=== PATIENT | female | born 1955 | race Caucasian/White ===

== ENCOUNTER 2019-01-23 15:41 | Inpatient (IN) | payer MEDICARE, OTHER ==
[~2019-01-23] VITALS: Ht 172.7 cm; Wt 76.7 kg
--- OUTSIDE RECORDS SUMMARY | 2019-01-23 15:44 | XMS REPORT | Summary of Care ---
Author Author [facility] - Health Organization [facility] - Health Address Unknown Phone Unavailable Care Team Providers Care Rnfa Name Role Phone Roderick Manning Delfina PCP Encounter Details Care Team Description Date Type Department Doctor Unassigned, [place] [address] [place] [address] 10/23/2018 Orders Only [facility] [address] [place] [address] Allergies Comments Active Allergy Reactions Severity Noted Date Swelling of throat Codeine Anaphylaxis, 10/22/2018 Itching documented as of this encounter (statuses as of 10/23/2018) Medications End Date Status Medication Sig Dispensed Refills Start Date Active amitriptyline 10 mg Take 10 mg by 0 tablet mouth. 8 Active citalopram 20 mg tablet Take 20 mg by 0 mouth daily. 9 Active clonazePAM 1 mg tablet Take 1 mg by 1 mouth 2 (two) 9 times daily. Active traZODone 100 mg tablet Take 1 tablet 1 by mouth at 9 bedtime. documented as of this encounter (statuses as of 10/23/2018) Active Problems Not on filedocumented as of this encounter (statuses as of 10/23/2018) Social History Date Tobacco Use Types Packs/Day Years Used Current Every Day Smoker Cigarettes 1 Smokeless Tobacco: Never Used Drinks/Week oz/Week Comments Alcohol Use Not Currently Sex Assigned at Date Recorded Not on file Industry Job Start Date Occupation Not on file Not on file Not on file Travel End Travel History Travel Start No recent travel history available. documented as of this encounter Last Filed Vital Signs Not on filedocumented in this encounter Plan of Treatment Care Team Description Date Type Specialty [address], [place] [address] [place] [address] [phone] 11/19/2018 Office Visit Obstetrics & Gynecology Liu Combs MD [address] [place] [address] [phone] 11/26/2018 Office Visit Obstetrics & Gynecology Health Maintenance Due Date Last Done Comments HEPATITIS C (HCV) SCREEN 1955 PNEUMOCOCCAL 0-64 YEARS 10/12/1961 COMBINED SERIES (1 of 1 - PPSV23) DTaP,Tdap,and Td Vaccines 10/12/1974 (1 - Tdap) PAP SMEAR 10/12/1976 MAMMOGRAM 1995 COLONOSCOPY 10/12/2005 Zoster Recombinant 10/12/2005 Vaccine (SHINGRIX) (1 of 2) LUNG CANCER SCREEN: 10/12/2010 Recommended for age 55-80 with 30 + pack year history INFLUENZA VACCINE 11/11/2018 11/23/2017 documented as of this encounter Procedures Comments Procedure Name Priority Date/Time Associated Diagnosis PATIENT QUESTIONNAIRE Routine 10/23/2018 12:01 AM CDT documented in this encounter Results Not on filedocumented in this encounter Insurance Type Payer Benefit Subscriber ID Effective Phone Address Plan / Dates Group Medicare MEDICARE MEDICARE xxxxxxxxxxx 2016-P [phone] resent [id number] [place] [id number] HMO/PPO/POS CIGNA CIGNA [id number] 2018- GENERIC Present documented as of this encounter
--- OUTSIDE RECORDS SUMMARY | 2019-01-23 15:44 | XMS REPORT | Summary of Care ---
Author Author [facility] - Health Organization [facility] - Health Address Unknown Phone Unavailable Care Team Providers Care Manager Actuarial Name Role Phone Delfina Fang PCP Reason for Referral * MRI/CAT Scan (Routine) Referred By Contact Referred To Contact Status Reason Specialty Diagnoses / Procedures Liu Combs MD [address] [place] [address] New Request Diagnostic Diagnoses Radiology Pain pelvic P rocedures CT ABDOMEN PELVIS W WO CONTRAST * (Routine) Referred By Contact Referred To Contact Status Reason Specialty Diagnoses / Procedures iLu Combs MD [address] [place] [address] New Request Diagnoses Hematuria, unspecified type P rocedures BLADDER SCAN PVR Reason for Visit * Reason Comments New Evaluation Prolapse Encounter Details Care Team Description Date Type Department Liu Combs MD [address] [place] [address] Hematuria, unspecified type (Primary Dx); Overactive bladder; Pain pelvic 10/22/2018 Office Visit [facility] [address] Allergies Comments Active Allergy Reactions Severity Noted Date Swelling of throat Codeine Anaphylaxis, 10/22/2018 Itching documented as of this encounter (statuses as of 10/22/2018) Medications Not on filedocumented as of this encounter (statuses as of 10/22/2018) Active Problems Not on filedocumented as of this encounter (statuses as of 10/22/2018) Social History Date Tobacco Use Types Packs/Day [...] of this encounter Last Filed Vital Signs Reading Time Taken Comments Vital Sign 149/87 10/22/2018 2:08 PM CDT Blood Pressure 81 10/22/2018 2:08 PM CDT Pulse - - Temperature - - Respiratory Rate 98% 10/22/2018 2:08 PM CDT Oxygen Saturation - - Inhaled Oxygen Concentration 77.3 kg (170 lb 6.4 oz) 10/22/2018 2:08 PM CDT Weight 172.7 cm (5' 8") 10/22/2018 2:08 PM CDT Height 25.91 10/22/2018 2:08 PM CDT Body Mass Index documented in this encounter Progress Notes * Lila Vidales MA - 10/22/2018 2:30 PM CDT Patient unable to give urine sample at beginning of visit, claiming she had just voided. PVR in room: 73 ml * Lila Vidales MA - 10/22/2018 2:30 PM CDT POCT U SP GRAV (mg/dl) Date Value 10/22/2018 1.010 POCT PH U (mg/dl) Date Value 10/22/2018 7 POCT U LEUK EST (no units) Date Value 10/22/2018 Negative POCT U NIT (no units) Date Value 10/22/2018 Negative POCT U PROT (no units) Date Value 10/22/2018 Negative POCT U GLU (no units) Date Value 10/22/2018 Normal POCT U KETONE (no units) Date Value 10/22/2018 Negative POCT U UROBILI (mg/dl) Date Value 10/22/2018 Normal POCT U BILI (no units) Date Value 10/22/2018 Negative POCT U BLD (no units) Date Value 10/22/2018 250 Non-hemo (A) POCT U COLOR (no units) Date Value 10/22/2018 Yellow POCT U APPEAR (no units) Date Value 10/22/2018 Clear * Liu Combs MD - 10/22/2018 2:30 PM CDT 10/22/2018 Visit Type: Clinic Note / History and Physical Primary M.D.: Delfina Jacobs is a 63 year old female, , presenting to clinic for evaluatio n of overactive bladder symptoms and pelvic pain that she has had for the last y ear. She has frequent small volume voids every 30 mins to 1 hour during the day and overnight. She denies stress incontinence symptoms aside from an isolated ep isode that occurred with laughing while she was present in clinic today. She cla ims that this was very unusual for her and has never happened previously. She describes her pelvic pain as an intermittent soreness that occurs when she h as been sitting for long periods or when she is supine. She also has occasional sharp twinges associated with movement. She denies prolapse or bulge sensation. Her last colonoscopy was 3 years ago and prompted removal of several polyps. She has a follow up appointment with her rn transplant in a month or two. She reports that she recently went to an [facility] near her home in [place] (unab le to remember doctor or clinic name) for a pap smear and ended up discussing he r urinary symptoms. The provider had her complete urodynamic studies and was lynnette nning surgery, however, she decided to seek care elsewhere. She is unsure what t he results of the UDS were or what the planned surgery was. She believes he star shayy her on a medication for overactive bladder, but is unsure of the medication name, dosage, how long she took it, and why she discontinued it. She denies fecal incontinence and difficulty with bowel movements. MEDICATIONS Trial of one medication for OAB previously - see HPI. HISTORY Allergies Allergen Reactions Codeine Anaphylaxis and Itching Swelling of throat Social History Tobacco Use Smoking status: Current Every Day Smoker Smokeless tobacco: Never Used Substance Use Topics Alcohol use: Not on file Drug use: Not on file Family History Problem Relation Age of Onset Lung Cancer Father Past Medical History: Diagnosis Date COPD (chronic obstructive pulmonary disease) Past Surgical History: Procedure Laterality Date ANTERIOR CRUCIATE LIGAMENT RECONSTRUCTION 2003 SECTION VALVE REPLACEMENT 2016 Review of Systems Constitutional: Positive for fatigue. Negative for chills and fever. Respiratory: Positive for cough. Negative for chest tightness and shortness of b reath. Cardiovascular: Negative for chest pain and palpitations. Gastrointestinal: Positive for abdominal pain. Negative for constipation, diarrh ea, nausea, rectal pain and vomiting. Genitourinary: Positive for bladder incontinence, urgency, frequency, pelvic gavin n and nocturia. Negative for dysuria, hematuria, decreased urine volume, difficu lty urinating and vaginal pain. Musculoskeletal: Negative for arthralgias, back pain and myalgias. Neurological: Positive for weakness and numbness. Negative for dizziness, seizur es and light-headedness. Physical Exam Vitals reviewed. Constitutional: She appears well-developed and well-nourished. Cardiovascular: Regular rate and rhythm. Pulmonary/Chest: Normal inspiratory effort. Abdominal: Abdomen is soft. Neuro/Psychiatric: She has a normal mood and affect. Skin: Skin normal. Genitourinary Comments: No evidence of pelvic organ prolapse. External genitalia: Normal external genitalia appropriate for age. Urethral meatus: Normal urethral meatus Urethra: Normal urethra. Vagina:Normal vagina. Cervix: Normal cervix. POP-Q EXAM Not Done ASSESSMENT/PLAN Hematuria, unspecified type (primary encounter diagnosis) Comment: POCT UA positive for blood. Patient denies gross hematuria. She has a s ignificant smoking history ("1 ppd for years and years"). Plan: CYTO URINE, URINE CULTURE, URINE CULTURE, POCT URINALYSIS W SPECIFIC GRAVITY, BLADDER SCAN PVR Overactive bladder Comment: Due to unclear history and lack of available records, we will repeat UD S and attempt to get records before further treatment planning. Plan: RTC for UDS with Ms. Lane. Pelvic Pain Comment: UA inconsistent with UTI but positive for blood. We will check urine cy tology. We discussed that pelvic organ prolapse and overactive bladder do not ca use pelvic pain, and that the pain might not be of gynecologic origin. She was e ncouraged to keep her appointment with her rn transplant. Ct Abd/ pelvis or dered. We will follow up with this concern at her next visit. Plan: see above Total time of visit: [address] Combs spent greater than 50% of the visit counseling with the patient regardi ng urinary incontinence and follow up. Corie Daily [facility] MS4 Urogynecology Acting Obstetrics Tech Total time of visit: 60 minutes I spent greater than 50% of the visit counseling with the patient regarding uri nary incontinence and follow up. Liu Combs MD 10/22/2018 5:23 PM documented in this encounter Plan of Treatment Care Team Description Date Type Specialty Katherine Lane, [facility] [address] [place] [address] [phone] 11/19/2018 Office Visit Obstetrics & Gynecology Liu Combs MD [address] [place] [address] 11/26/2018 Office Visit Obstetrics & Gynecology Date/Time Name Type Priority Associated Diagnoses 10/22/2018 3:13 PM CDT CYTO URINE LAB Routine Hematuria, unspecified type 10/22/2018 3:14 PM CDT URINE CULTURE LAB Routine Hematuria, unspecified type Order Schedule Name Type Priority Associated Diagnoses 1 Occurrences starting 10/22/2018 until 10/22/2019 URINE CULTURE LAB Routine Hematuria, unspecified type Ordered: 10/22/2018 BLADDER SCAN PVR PROCEDURES Routine Hematuria, unspecified type Expected: 10/22/2018, Expires: 10/23/2019 CT ABDOMEN PELVIS W WO IMAGING Routine Pain pelvic CONTRAST Ordered: 10/22/2018 CREATININE LAB Routine Pain pelvic Health Maintenance Due Date Last Done Comments HEPATITIS C (HCV) SCREEN 1955 DTaP,Tdap,and Td Vaccines 10/12/1974 (1 - Tdap) PAP SMEAR 10/12/1976 MAMMOGRAM 1995 COLONOSCOPY 10/12/2005 Zoster Recombinant 10/12/2005 Vaccine (SHINGRIX) (1 of 2) LUNG CANCER SCREEN: 10/12/2010 Recommended for age 55-80 with 30 + pack year history INFLUENZA VACCINE 11/11/2018 PNEUMOCOCCAL 0-64 YEARS Aged Out No longer eligible based COMBINED SERIES on patient's age to complete this topic documented as of this encounter Procedures Comments Procedure Name Priority Date/Time Associated Diagnosis POCT URINALYSIS Routine 10/22/2018 Hematuria, unspecified 3:12 PM CDT type documented in this encounter Results * POCT URINALYSIS W SPECIFIC GRAVITY (10/22/2018 3:12 PM CDT) POCT U SP GRAV 1.010 1.005 - 1.025 mg/dl POCT PH U 7 5 - 8 mg/dl POCT U LEUK EST Negative Negative - Negative POCT U NIT Negative Negative - Negative POCT U PROT Negative Negative - Negative POCT U GLU Normal Negative - Negative POCT U KETONE Negative Negative - Negative POCT U UROBILI Normal 0.2 - 1 mg/dl POCT U BILI Negative Negative - Negative POCT U BLD 250 Non-hemo (A) Negative - Negative POCT U COLOR Yellow POCT U APPEAR Clear Specimen Urine - URINE, CLEAN CATCH Narrative Performed At [facility] documented in this encounter Visit Diagnoses Diagnosis Hematuria, unspecified type - Primary Overactive bladder Hypertonicity of bladder Pain pelvic Unspecified symptom associated with female genital organs documented in this encounter Insurance Type Payer Benefit Subscriber ID Effective Phone Address Plan / Dates Group Medicare MEDICARE MEDICARE xxxxxxxxxxx 2016-P [phone] resent [id number] [place] [id number] HMO/PPO/POS CIGNA CIGNA [id number] 2018- GENERIC Present documented as of this encounter
--- OUTSIDE RECORDS SUMMARY | 2019-01-23 15:44 | XMS REPORT | Summary of Care ---
Author Author [facility] - Health Organization [facility] - Health Address Unknown Phone Unavailable Care Team Providers Care Shearing Machine Feeder Name Role Phone Delfina Fang PCP Reason for Referral * Radiology Services (Routine) Referred By Contact Referred To Contact Status Reason Specialty Diagnoses / Procedures Liu Combs MD [address] [place] [address] New Request Diagnostic Diagnoses Radiology Breast calcification, right P rocedures BI ULTRASOUND BREAST COMPLETE BILATERAL Reason for Visit * Reason Comments Orders Encounter Details Care Team Description Date Type Department Liu Combs MD [address] [place] [address] Orders 11/05/2018 Telephone [facility] [address] [address] Allergies Comments Active Allergy Reactions Severity Noted Date Swelling of throat Codeine Anaphylaxis, 10/22/2018 Itching documented as of this encounter (statuses as of 11/05/2018) Medications End Date Status Medication Sig Dispensed [...] tablet 1 by mouth at 9 bedtime. Active travoprost (TRAVATAN Z) 1 Drop at 0 0.004 % ophthalmic bedtime. solution documented as of this encounter (statuses as of 11/05/2018) Active Problems Not on filedocumented as of this encounter (statuses as of 11/05/2018) Social History Date Tobacco Use Types Packs/Day [...] Treatment Care Team Description Date Type Specialty Domingo Lennykayla Ansari, [facility] [address] [place] [address] 11/19/2018 Office Visit Obstetrics & Gynecology Liu Combs MD [address] [place], [place] [phone] 11/26/2018 Office Visit Obstetrics & Gynecology Marck Oreilly MD [address] [facility] [id number] [place] [id number] Derick Rubin, PT [address] [place] [address] 12/10/2018 Ancillary Visit Physical Therapy Order Schedule Name Type Priority Associated Diagnoses Expected: 11/05/2018, Expires: 01/06/2020 BI ULTRASOUND BREAST IMAGING Routine Breast calcification, COMPLETE BILATERAL right Health Maintenance Due Date Last Done Comments HEPATITIS C (HCV) SCREEN 1955 PNEUMOCOCCAL 0-64 YEARS 10/12/1961 COMBINED SERIES (1 of 1 - PPSV23) DTaP,Tdap,and Td Vaccines 10/12/1974 (1 - Tdap) PAP SMEAR 10/12/1976 MAMMOGRAM 1995 COLONOSCOPY 10/12/2005 Zoster Recombinant 10/12/2005 Vaccine (SHINGRIX) (1 of 2) LUNG CANCER SCREEN: 10/12/2010 Recommended for age 55-80 with 30 + pack year history INFLUENZA VACCINE (#1) 2018 11/23/2017 documented as of this encounter Results Not on filedocumented in this encounter Visit Diagnoses Diagnosis Breast calcification, right - Primary Other (abnormal) findings on radiological examination of breast documented in this encounter Insurance Type Payer Benefit Subscriber ID Effective Phone Address Plan / Dates Group Medicare MEDICARE MEDICARE xxxxxxxxxxx 2016-P [phone] [address] resent [id number] [place] [id number] HMO/PPO/POS [employer] [id number] 2018- GENERIC Present documented as of this encounter
--- OUTSIDE RECORDS SUMMARY | 2019-01-23 15:44 | XMS REPORT | Summary of Care ---
Author Author [facility] - Health Organization [facility] - Health Address Unknown Phone Unavailable Care Team Providers Care Gaming Dealer Name Role Phone Delfina Fang PCP Reason for Referral * Radiology Services (Routine) Referred By Contact Referred To Contact Status Reason Specialty Diagnoses / Procedures Liu Combs MD [address] [place] [address] New Request Diagnostic Diagnoses Radiology Breast calcification, right P rocedures BI DIAGNOSTIC MAMMOGRAM BILATERAL * (Routine) Referred By Contact Referred To Contact Status Reason Specialty Diagnoses / Procedures Liu Combs MD [address] [place] [address] New Request Physical Therapy Diagnoses Back pain, unspecified back location, unspecified back pain laterality, unspecified chronicity P rocedures CONSULT/REFERRAL PHYSICAL THERAPY Reason for Visit * Reason Comments Follow-up follow up to CT scan and pain pills Encounter Details Care Team Description Date Type Department Liu Combs MD [address] [place] [address] Back pain, unspecified back location, unspecified back pain laterality, unspecified chronicity (Primary Dx); Breast calcification, right 11/05/2018 Office Visit [facility] [address] [place] [address] [address] Allergies Comments Active Allergy Reactions [...] Signs Reading Time Taken Comments Vital Sign 152/89 11/05/2018 10:36 AM CDT Blood Pressure 86 11/05/2018 10:36 AM CDT Pulse 35.9 C (96.7 F) 11/05/2018 10:36 AM CDT Temperature 18 11/05/2018 10:36 AM CDT Respiratory Rate 98% 11/05/2018 10:36 AM CDT Oxygen Saturation - - Inhaled Oxygen Concentration 78.3 kg (172 lb 9.6 oz) 11/05/2018 10:36 AM CDT Weight 172.7 cm (5' 8") 11/05/2018 10:36 AM CDT Height 26.24 11/05/2018 10:36 AM CDT Body Mass Index documented in this encounter Progress Notes * Liu Combs MD - 11/05/2018 10:30 AM CDT Urogynecology Clinic Follow Up HPI Eddie Jacobs is a 63 year old female returning for review of CT scan results. CT scan performed due to history of abdominal and pelvic pain. Patient reports back pain as well, worsen with sitting. She has not been evaluated by physical thera py. Patient also has overactive bladder, is scheduled for urodynamics testing. IMPRESSION 1. No acute intra-abdominal or intrapelvic pathology 2. Hepatomegaly and hepatic steatosis 3. Prominent para uterine blood vessels and dilated left gonadal vein can lead to pelvic congestion syndrome. 4. Partially visualized calcified mass in the right breast. Please correlate with mammogram 5. Bilateral spondylolysis of L5 with grade 1 anterolisthesis of L5 6. 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 HISTORY Allergies Allergen Reactions Codeine Anaphylaxis and Itching Swelling of throat Social History Tobacco Use Smoking status: Current Every Day Smoker Packs/day: 1.00 Types: Cigarettes Smokeless tobacco: Never Used Substance Use Topics Alcohol use: Not Currently Drug use: Not Currently Family History Problem Relation Age of Onset Lung Cancer Father Past Medical History: Diagnosis Date COPD (chronic obstructive pulmonary disease) Past Surgical History: Procedure Laterality Date ANTERIOR CRUCIATE LIGAMENT RECONSTRUCTION 2002 SECTION VALVE REPLACEMENT 2015 REVIEW OF SYSTEMS (+)=Positive (-)=Negative I have reviewed ROS from the previous encounter dated and there are no changes. PHYSICAL EXAM (+)=Positive (-)=Negative BP (!) 152/89 | Pulse 86 | Temp 35.9 C (96.7 F) | Resp 18 | Ht 5' 8" (1. 727 m) | Wt 172 lb 9.6 oz (78.3 kg) | SpO2 98% | BMI 26.24 kg/m Constitutional: She appears well-developed and well-nourished. Her body habitus is normal. Pulmonary/Chest: Normal inspiratory effort. Abdominal: Abdomen is soft. No tenderness present. Neuro: She is oriented to person, place, and time. Psychiatric: She has a normal mood and affect. Skin: Skin normal. No lesion and no rash present. Ext: Normal. No pedal edema. ASSESSMENT/PLAN Back pain, unspecified back location, unspecified back pain laterality, unspecif ied chronicity (primary encounter diagnosis) Comment: Discussed that pelvic pain, back pain may be musculoskeletal in origin. CT resul t findings were extensively reviewed with the patient. Advised patient to follow up with PCP and cardiology to notify them of CT findings for future monitoring. 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 Would try physical therapy first prior to starting trial of OCPs. Plan: CONSULT/REFERRAL PHYSICAL THERAPY Breast calcification, right Comment: MMG ordered as advised. Postpone trial of OCPs for pelvic congestion sy ndrome until mammogram. Plan: BI DIAGNOSTIC MAMMOGRAM BILATERAL Follow up for urodynamics testig as scheduled. This visit involved counseling and coordination of care that comprised more than 50% of the visit time. I spent 45 minute(s) total time with the patient. Of t hat time, 10 minute(s) was spent on history and exam, and 20 minute(s) was spent counseling the patient regarding CT scan results and follow up. Liu Combs MD 11/05/2018 12:28 PM * Elsie Crocker MA - 11/05/2018 10:30 AM CDT Eddie Jacobs is a 63 year old female follow up to CT scan and pain pills she is a lert and ambulatory documented in this encounter Plan of Treatment Care Team Description Date Type Specialty Katherine [address], [facility] [address] [place] [address] 11/19/2018 Office Visit Obstetrics & Gynecology Liu Combs MD [address] [place], [place] [phone] 11/26/2018 Office Visit Obstetrics & Gynecology Marck Oreilly MD [address] [facility] [id number] [place] [address] [phone] Derick Rubin, PT [address] [place] [address] 12/10/2018 Ancillary Visit Physical Therapy Order Schedule Name Type Priority Associated Diagnoses Expected: 11/05/2018, Expires: 01/06/2020 BI DIAGNOSTIC MAMMOGRAM IMAGING Routine Breast calcification, BILATERAL right Health Maintenance Due Date Last [...] filedocumented in this encounter Visit Diagnoses Diagnosis Back pain, unspecified back location, unspecified back pain laterality, unspecified chronicity - Primary Breast calcification, right Other (abnormal) findings on radiological examination of breast documented in this encounter Insurance Type Payer Benefit Subscriber ID Effective Phone Address Plan / Dates Group Medicare MEDICARE MEDICARE xxxxxxxxxxx 2016-P [phone] resent [id number] [place] [id number] HMO/PPO/POS [employer]LIN [employer]UCKER [id number] 2018- GENERIC Present documented as of this encounter
--- OUTSIDE RECORDS SUMMARY | 2019-01-23 15:44 | XMS REPORT | Summary of Care ---
Author Author [facility] - Health Organization [facility] - Health Address Unknown Phone Unavailable Care Team Providers Care Energy Projects Lead Name Role Phone Delfina Fang PCP Reason for Visit * Reason Comments Results CT results Encounter Details Care Team Description Date Type Department Liu Combs MD [address] [place] [address] Results (CT results) 10/31/2018 Telephone [facility] [address] [place] [address] [address] [place] [address] Allergies Comments Active Allergy Reactions Severity Noted Date Swelling of throat Codeine Anaphylaxis, 10/22/2018 Itching documented as of this encounter (statuses as of 10/31/2018) Medications End Date Status Medication Sig Dispensed [...] as of this encounter (statuses as of 10/31/2018) Active Problems Not on filedocumented as of this encounter (statuses as of 10/31/2018) Social History Date Tobacco Use Types Packs/Day [...] Team Description Date Type Specialty [address], [facility] [address] [facility] [place] [address] 11/19/2018 Office Visit Obstetrics & Gynecology Liu Combs MD [address] [place] [address] 11/26/2018 Office Visit Obstetrics & Gynecology Health [...] Dates Group Medicare MEDICARE MEDICARE xxxxxxxxxxx 2016-P [phone] resent [id number] [place] [id number] HMO/PPO/POS CAITLIN TUCKER [id number] 2018- GENERIC Present documented as of this encounter
--- OUTSIDE RECORDS SUMMARY | 2019-01-23 15:44 | XMS REPORT | Summary of Care ---
Author Author [facility] - Health Organization [facility] Address Unknown Phone Unavailable Care Team Providers Care Supervisor Logging Name Role Phone Delfina Fang PCP Reason for Visit * MRI/CAT Scan (Routine) Referred By Contact Referred To Contact Status Reason Specialty Diagnoses / Procedures Liu Combs MD [address] [place] [address] Closed Diagnostic Diagnoses Radiology Pain pelvic P rocedures CT ABDOMEN PELVIS W CONTRAST CT ABDOMEN PELVIS W WO CONTRAST Encounter Details Care Team Description Date Type Department Liu Combs MD [address] [place] [address] Arrived 10/26/2018 [facility] Diagnostic Encounter Imaging, [address] [address] Allergies Comments Active Allergy Reactions Severity Noted Date Swelling of throat Codeine Anaphylaxis, 10/22/2018 Itching documented as of this encounter (statuses as of 10/27/2018) Medications End Date Status Medication Sig Dispensed [...] as of this encounter (statuses as of 10/27/2018) Active Problems Not on filedocumented as of this encounter (statuses as of 10/27/2018) Social History Date Tobacco Use Types Packs/Day [...] Team Description Date Type Specialty Katherine [address], [facility] [address] [place] [address] 11/19/2018 Office Visit Obstetrics & Gynecology Liu Combs MD [address] [place] [address] 11/26/2018 Office Visit Obstetrics & Gynecology [...] 2018 11/23/2017 documented as of this encounter Procedures Comments Procedure Name Priority Date/Time Associated Diagnosis CT ABDOMEN PELVIS W Routine 10/26/2018 Pain pelvic CONTRAST 3:28 PM CDT documented in this encounter Results * CT ABDOMEN PELVIS W CONTRAST (10/26/2018 3:28 PM CDT) Specimen Impressions Performed At 1. No acute intra-abdominal or intrapelvic pathology PACS/VR/DOSE 2. Hepatomegaly and hepatic steatosis 3. Prominent para uterine blood vessels and dilated left gonadal vein can lead to pelvic congestion syndrome. 4. Partially visualized calcified mass in the right breast. Please correlate with mammogram 5. Bilateral spondylolysis of L5 with grade 1 anterolisthesis of L5 6. 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 Narrative Performed At * * * * * * * * ORIGINAL REPORT * * * * * * * * PACS/VR/DOSE EXAM: CT SCAN OF THE ABDOMEN AND PELVIS WITH CONTRAST HISTORY:Abd pain, acute, generalized; TECHNIQUE:3.75 mm axial images are obtained from diaphragmatic domes to symphysis pubis following intravenous administration of 100 mL of Omnipaque 350. Sagittal and coronal reformations are carried out. COMPARISON: None FINDINGS: The visualized lung bases are clear. No pleural effusion is seen. Heart size is normal. 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 A partially calcified mass is present in the lower inferior right breast. Liver is enlarged in size and measures 19.6 cm. The density of the liver is decreased compared to the spleen. No definite focal masses are present within the liver. Gallbladder is normal. No calcified gallstones are seen. No biliary tree dilation is appreciated. Pancreas is somewhat atrophic. No ductal dilation is noted. Spleen is normal in size. Multiple calcifications are seen within the spleen. Adrenal glands are normal. No nodularity is seen. Kidneys are normal in size and shape. No renal stone or hydronephrosis is present. Very mild aneurysmal dilation of the infrarenal abdominal aorta is noted with a diameter of 2.4 cm. Atherosclerotic calcifications are seen in the abdominal aorta. No free fluid is seen in the abdomen. No enlarged retroperitoneal lymph nodes are present. No evidence of bowel obstruction is seen. A few scattered diverticula are seen in the sigmoid colon. The uterus and urinary bladder are grossly normal. Multiple prominent parametrial vessels are seen in the left side of the uterus with dilated left gonadal vein. No free fluid is seen in the pelvis. No suspicious bony abnormality is noted. Grade 1 anterolisthesis of L5 is noted in relation to S1 with bilateral spondylolysis of L5. Exaggerated lumbosacral lordosis is seen. Procedure Note [facility], Radiant Results Inft User - 10/26/2018 4:02 PM CDT * * * * * * * * ORIGINAL REPORT * * * * * * * * EXAM: CT SCAN OF THE ABDOMEN AND PELVIS WITH CONTRAST HISTORY: Abd pain, acute, generalized; TECHNIQUE:3.75 mm axial images are obtained from diaphragmatic domes to symphysis pubis following intravenous administration of 100 mL of Omnipaque 350. Sagittal and coronal reformations are carried out. COMPARISON: None FINDINGS: The visualized lung bases are clear. No pleural effusion is seen. Heart size is normal. 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 A partially calcified mass is present in the lower inferior right breast. Liver is enlarged in size and measures 19.6 cm. The density of the liver is decreased compared to the spleen. No definite focal masses are present within the liver. Gallbladder is normal. No calcified gallstones are seen. No biliary tree dilation is appreciated. Pancreas is somewhat atrophic. No ductal dilation is noted. Spleen is normal in size. Multiple calcifications are seen within the spleen. Adrenal glands are normal. No nodularity is seen. Kidneys are normal in size and shape. No renal stone or hydronephrosis is present. Very mild aneurysmal dilation of the infrarenal abdominal aorta is noted with a diameter of 2.4 cm. Atherosclerotic calcifications are seen in the abdominal aorta. No free fluid is seen in the abdomen. No enlarged retroperitoneal lymph nodes are present. No evidence of bowel obstruction is seen. A few scattered diverticula are seen in the sigmoid colon. The uterus and urinary bladder are grossly normal. Multiple prominent parametrial vessels are seen in the left side of the uterus with dilated left gonadal vein. No free fluid is seen in the pelvis. No suspicious bony abnormality is noted. Grade 1 anterolisthesis of L5 is noted in relation to S1 with bilateral spondylolysis of L5. Exaggerated lumbosacral lordosis is seen. IMPRESSION 1. No acute intra-abdominal or intrapelvic [...] aorta with a diameter of 2.4 cm. Performing Organization Address City/State/Zipcode Phone Number PACS/VR/DOSE documented in this encounter Visit Diagnoses Diagnosis Pain pelvic Unspecified symptom associated with female genital organs documented in this encounter Administered Medications Action Date Dose Rate Site Medication Order MAR Action 10/26/2018 3:10 PM CDT 100 mL iohexol (OMNIPAQUE 350 BULK-100 mL) Given injection 100 mL 100 mL, Intravenous, ONCE, 1 dose, Mon10/26/18 at 1530, Routine documented in this encounter Insurance Type Payer Benefit Subscriber ID Effective Phone Address Plan / Dates Group Medicare MEDICARE MEDICARE xxxxxxxxxxx 2016-P [phone] [address] & B resent [id number] [place] [id number] HMO/PPO/POS CAITLIN TUCKER [id number] 2018- GENERIC Present ([place]) [place] [address] documented as of this encounter
--- OUTSIDE RECORDS SUMMARY | 2019-01-23 15:44 | XMS REPORT | Summary of Care ---
Author Author [facility] - Health Organization [facility] - Health Address Unknown Phone Unavailable Care Team Providers Care Patent Clerk Name Role Phone Delfina Fang PCP Reason for Referral * Radiology Services (Routine) Referred By Contact Referred To Contact Status Reason Specialty Diagnoses / Procedures Liu Combs MD [address] [place] [address] New Request Diagnostic Diagnoses Radiology Breast calcification, right P rocedures BI DIAGNOSTIC MAMMOGRAM BILATERAL * (Routine) Referred By Contact Referred To Contact Status Reason Specialty Diagnoses / Procedures Liu Combs MD [address] [place] [address] New Request Physical Therapy Diagnoses Back pain, unspecified back location, unspecified back pain laterality, unspecified chronicity P rocedures CONSULT/REFERRAL PHYSICAL THERAPY Reason for Visit * Reason Comments Follow-up follow up to CT scan and pain pills Encounter Details Care Team Description Date Type Department Liu Combs MD [address] [place] [address] Back pain, unspecified back location, unspecified back pain laterality, unspecified chronicity (Primary Dx); Breast calcification, right 11/05/2018 Office Visit [facility] [address] [place] [address] [address] Allergies Comments Active Allergy Reactions [...] Team Description Date Type Specialty Katherine [address], [facility] [address] [place] [address] 11/19/2018 Office Visit Obstetrics & Gynecology Liu Combs MD [address] [place], [place] [phone] 11/26/2018 Office Visit Obstetrics & Gynecology Marck Oreilly MD [address] [facility] [id number] [place] [address] [phone] eDrick Rubin, PT [address] [place] [address] 12/10/2018 Ancillary Visit Physical Therapy Order Schedule [...] Dates Group Medicare MEDICARE MEDICARE xxxxxxxxxxx 2016-P [phone] [address] resent [id number] [place] [id number] HMO/PPO/POS CAITLIN TUCKER [id number] 2018- GENERIC Present documented as of this encounter
--- OUTSIDE RECORDS SUMMARY | 2019-01-23 15:44 | XMS REPORT ---
Author Author [facility] Address Unknown Phone Unavailable Care Team Providers Care Wine Bottle Inspector Name Role Phone Unavailable Unavailable Payers Payer Name Policy Type Policy Number Effective Date Expiration Date Problems This patient has no known problems. Allergies, Adverse Reactions, Alerts Allergy Name Allergy Type Status Severity Reaction(s) Onset Date Inactive Date Treating Clinician Comments stephanie Vazquez ID 2015-11-12 00:00:00 Medications This patient has no known medications. Results Test Description Test Time Test Comments Text Results Atomic Results Result Comments - US ABDOMEN COMPLETE 2018-10-18 13:25:00 Name: PINA [facility] [place] : 1955 Age/S: 62 / F [address] [place] [address] Unit #: [id number] Loc: [place] [address] Phys: Vineet Yanez MD Acct: [id number] Dis Date: Status: DEP CLI PHONE #: [phone] Exam Date: 10/03/2018 1020 FAX #: [phone] Reason: K82.4 , GALLBLADDER POLYP. R10.84 , ABD PAIN. Report Has Been Amended EXAMS: CPT CODE: [id number] US ABDOMEN COMPLETE [id number] Addendum - 10/18/2018 SIGNED 10/18/2018 ADDENDUM: [id number] [facility] ADDEND[facility]: Gallbladder polyp measures 3 mm in size. at 1325 Reported and signed by: Avtar Dill M.D. Report CLINICAL HISTORY: K 82.4, gall bladder polyp, R 10.84, abdominal pain. COMPARISON: November 13, 2015. Real-time ultrasound examination demonstrates no stones in the lumen of gallbladder. An echogenic focus in the nondependent portion of the gallbladder with ringdown artifact is identified. Findings are most likely those of cholesterol polyp in this location. Finding has not changed significant since previous examination. There is no evidence of thickening of gallbladder wall or biliary ductal dilatation. Sonographic 's sign was reported to be negative. Liver appears normal without any focal abnormality. Spleen measures 11.2 cm in length with multiple echogenic foci compatible with splenic granulomas. Visualized portions of pancreas appear normal. Atheromatous calcifications are present in abdominal aorta. Visualized portions of vena cava appear normal. Right kidney measures 10.9 cm in length and the left kidney measures 12.1 cm in length. There is no evidence of hydronephrosis, mass or other significant abnormality on either side. IMPRESSION: 1. Gallbladder polyp, unchanged since previous examination. 2. Splenic granulomas and atheromatous calcifications in abdominal PAGE 1 Signed Report (CONTINUED) Name: PINA [facility] : 1955 Age/S: 62 / F [address] [place] [address] Unit #: [id number] Loc: [place] [address] Phys: Vineet Yanez MD Acct: [id number] Dis Date: Status: DEP CLI PHONE #: [phone] Exam Date: 10/03/2018 1020 FAX #: [phone] Reason: K82.4 , GALLBLADDER POLYP. R10.84 , ABD PAIN. Report Has Been Amended EXAMS: CPT CODE: [id number] US ABDOMEN COMPLETE 57733 <Continued> aorta. 3. No other significant abnormality noted on upper abdominal ultrasound. at 1045 Reported and signed by: Avtar Dill M.D. CC: Delfina Manning MD; Vineet Yanez MD Technologist: Salome Rivas RDMS(BR)(AB) Trnscb Date/Time: 10/04/2018 (7235) Vidya Orig Print D/T: S: 10/04/2018 (9698) Probe: PAGE 2 Signed Report - US ABDOMEN COMPLETE 2018-10-04 10:45:00 Name: PINA GOOD [facility] : 1955 Age/S: 62 / F [address] [place] [address] Blvd Unit #: [id number] Loc: [place] [address] Phys: Vineet Yanez MD Acct: [id number] Dis Date: Status: DEP CLI PHONE #: [phone] Exam Date: 10/03/2018 1020 FAX #: [phone] Reason: K82.4 , GALLBLADDER POLYP. R10.84 , ABD PAIN. EXAMS: CPT CODE: [id number] US ABDOMEN COMPLETE 45347 CLINICAL HISTORY: K 82.4, gallbladder polyp, R 10.84, abdominal pain. COMPARISON: November 13, 2015. Real-time ultrasound examination demonstrates no stones in the lumen of gallbladder. An echogenic focus in the nondependent portion of the gallbladder with ringdown artifact is identified. Findings are most likely those of cholesterol polyp in this location. Finding has not changed significant since previous examination. There is no evidence of thickening of gallbladder wall or biliary ductal dilatation. Sonographic 's sign was reported to be negative. Liver appears normal without any focal abnormality. Spleen measures 11.2 cm in length with multiple echogenic foci compatible with splenic granulomas. Visualized portions of pancreas appear normal. Atheromatous calcifications are present in abdominal aorta. Visualized portions of vena cava appear normal. Right kidney measures 10.9 cm in length and the left kidney measures 12.1 cm in length. There is no evidence of hydronephrosis, mass or other significant abnormality on either side. IMPRESSION: 1. Gallbladder polyp, unchanged since previous examination. 2. Splenic granulomas and atheromatous calcifications in abdominal aorta. 3. No other significant abnormality noted on upper abdominal ultrasound. at 1045 Reported and signed by: Avtar Dill M.D. CC: Delfina Manning MD; Vineet Yanez MD Technologist: Salome Rivas RDMS(TORO)(AB) Trnscb Date/Time: 10/04/2018 (1045) Vidya Orig Print D/T: S: 10/04/2018 (104) Probe: PAGE 1 Signed Report SCR MAMM BILATERAL SARI CAD DIGITAL W/AUGMENTATION 2018-03-23 14:29:08 - SCR MAMM BILATERAL SARI CAD DIGITAL W/AUGMENTATIONBILATERAL DIGITAL SCREENING MAMMOGRAM 3D/2D WITH CAD WITH AUGMENTATION: 03/23/2018CLINICAL: Asymptomatic. Digital breast tomosynthesis was performed in addition to routine CC and MLO views. Current mammographic images were evaluated by either a Evolution Mobile Platform M-Vu or a SWIIM Systemcker CAD (computer aided detection system). Comparison is made to exam dated 12/16/2016 mammogram - [facility]. There are scattered fibroglandular tissues in both breasts. No suspicious mass, architectural distortion, malignant type calcification, or lymph node abnormality detected. Breast architecture is stable compared to prior exams. There is free silicone noted bilaterally (most notable along the inferior aspect of the breast implants on the bilateral MLO views) and this is most consistent with free silicone from silicone implant rupture.IMPRESSION: NEGATIVEThere is no mammographic evidence of malignancy. Resume annual screening mammography in one year.Findings most consistent with bilateral implant rupture. If further evaluation of the breast implants is needed, breast MRI is the most sensitive exam for the evaluation of implants abnormalities.Jina Scott M.D. ar/:03/23/2018 14:29:08 Data Consultant: Aliza AGUILERA, [facility] sent: BIRADS 1-2 Normal Mammogram BI-RADS: 1 Negative
--- OUTSIDE RECORDS SUMMARY | 2019-01-23 15:44 | XMS REPORT | Summary of Care ---
Author Author [facility] - Health Organization [facility] - Health Address Unknown Phone Unavailable Care Team Providers Care Creel Selector Name Role Phone Delfina Fang PCP Reason for Referral * MRI/CAT Scan (Routine) Referred By Contact Referred To Contact Status Reason Specialty Diagnoses / Procedures Liu Combs MD [address] [place] [address] New Request Diagnostic Diagnoses Radiology Pain pelvic P rocedures CT ABDOMEN PELVIS W WO CONTRAST * (Routine) Referred By Contact Referred To Contact Status Reason Specialty Diagnoses / Procedures Liu Combs MD [address] [place] [address] New Request Diagnoses Hematuria, unspecified type P rocedures BLADDER SCAN PVR Reason for Visit * Reason Comments New Evaluation Prolapse Encounter Details Care Team Description Date Type Department Liu Combs MD [address] [place] [address] Hematuria, unspecified type (Primary Dx); Overactive bladder; Pain pelvic 10/22/2018 Office Visit [facility] [address] Allergies Comments Active Allergy Reactions Severity Noted [...] has a follow up appointment with her rubber washer in a month or two. She reports that she recently went to an [facility] near her home in [place] (unab le to remember doctor or clinic [...] ncouraged to keep her appointment with her rubber washer. Ct Abd/ pelvis or dered. We will follow up with this concern at her next visit. Plan: see above Total time of visit: [address] Combs spent greater than 50% of the visit counseling with the patient regardi ng urinary incontinence and follow up. Corie Daily [facility] MS4 Urogynecology Acting Keg Inspector Total time of visit: 60 minutes I spent greater than 50% of the visit counseling with the patient regarding uri nary incontinence and follow up. Liu Combs MD 10/22/2018 5:23 PM documented in this encounter Plan of Treatment Care Team Description Date Type Specialty [address], [facility] [address] [place] [address] [phone] 11/19/2018 Office Visit Obstetrics & Gynecology Liu Combs MD [address] [place] [address] 11/26/2018 Office Visit Obstetrics & Gynecology [...] - URINE, CLEAN CATCH Narrative Performed At [facility] documented in this encounter Visit Diagnoses Diagnosis Hematuria, unspecified type - Primary Overactive bladder Hypertonicity of bladder Pain pelvic Unspecified symptom associated with female genital organs documented in this encounter Insurance Type Payer Benefit Subscriber ID Effective Phone Address Plan / Dates Group Medicare MEDICARE MEDICARE xxxxxxxxxxx 2016-P [phone] [address] B resent [id number] [place] [id number] HMO/PPO/POS CIGNA CIGNA [id number] 2018- GENERIC Present documented as of this encounter
--- OUTSIDE RECORDS SUMMARY | 2019-01-23 15:44 | XMS REPORT | Summary of Care ---
Author Author [facility] - Health Organization [facility] - Health Address Unknown Phone Unavailable Care Team Providers Care [place] Mobile Radio Technician Name Role Phone Delfina Fang PCP Reason for Visit * Radiology Services (Routine) Referred By Contact Referred To Contact Status Reason Specialty Diagnoses / Procedures Liu Combs MD [address] [place] [id number] Closed Diagnostic Diagnoses Radiology Breast calcification, right P rocedures BI ULTRASOUND BREAST LIMITED BILATERAL BI ULTRASOUND BREAST COMPLETE BILATERAL Encounter Details Care Team Description Date Type Department Liu Combs MD [address] [place] [address] Arrived 11/28/2018 [facility] Encounter [facility] [address] [place] [address] Allergies Comments Active Allergy Reactions Severity Noted Date Swelling of throat Codeine Anaphylaxis, 10/22/2018 Itching documented as of this encounter (statuses as of 11/29/2018) Medications End Date Status Medication Sig Dispensed [...] as of this encounter (statuses as of 11/29/2018) Active Problems Not on filedocumented as of this encounter (statuses as of 11/29/2018) Social History Date Tobacco Use Types Packs/Day [...] filedocumented in this encounter Plan of Treatment Health Maintenance Due Date Last Done Comments [...] Comments Procedure Name Priority Date/Time Associated Diagnosis BI ULTRASOUND BREAST Routine 11/28/2018 Breast calcification, LIMITED BILATERAL 9:12 AM CDT right documented in this encounter Results * BI ULTRASOUND BREAST LIMITED BILATERAL (11/28/2018 9:12 AM CDT) Specimen Narrative Performed At PACS Examination: BI DIAGNOSTIC TOMOSYNTHESIS BILATERAL BI ULTRASOUND BREAST LIMITED BILATERAL History: Patient is 63 year old and is seen for:Calcifications on ct scan. No relevant hormone history has been documented for this patient. No relevant surgical history has been documented for this patient. No relevant medical history has been documented for this patient. Computer-aided detection (CAD) utilized. Comparisons : None available Findings: The breasts have scattered areas of fibroglandular density. There is no evidence of suspicious masses, calcifications, or other abnormal findings. Findings: Right BI DIAGNOSTIC TOMOSYNTHESIS BILATERAL There is no evidence of suspicious masses, calcifications, or other abnormal findings. BI ULTRASOUND BREAST LIMITED BILATERAL Targeted ultrasound demonstrates no sonographic abnormality. The recent partially visualized calcified mass noted on recent CT is most consistent with a partially visualized calcified breast implant. Left BI DIAGNOSTIC TOMOSYNTHESIS BILATERAL There is no evidence of suspicious masses, calcifications, or other abnormal findings. On the inferior region of the left implant there is an area of increase density seen on LMLO view. BI ULTRASOUND BREAST LIMITED BILATERAL Targeted ultrasound demonstrates a snow storm area at 6 o'clock at a distance of 2 cm from the nipple, consistent with free silicone correlating with mammographic findings. I The silicone implants are distorted with nara-implant densities and are partially calcified. Bilateral implant rupture is suspected. Impression: No evidence of malignancy. Bilateral prepectoral silicone implant rupture with free silicone. If clinically indicated, these would be better evaluated with bilateral breast MRI without contrast. Recommendation: Annual mammographic follow-up - Bilateral Clinical follow-up is also recommended and further management of clinical findings should be based on the results of clinical evaluation. - Bilateral BI-RADS Category: Both 2 - Benign I personally reviewed the study and agree with the resident's/fellow's report. Performing Organization Address [facility] Phone Number P[facility] documented in this encounter Visit Diagnoses Diagnosis Breast calcification, right Other (abnormal) findings on radiological examination of breast documented in this encounter Insurance Type Payer Benefit Subscriber ID Effective Phone Address Plan / Dates Group Medicare MEDICARE MEDICARE xxxxxxxxxxx 2016-P [phone] resent [id number] [place] [id number] HMO/PPO/POS CAITLIN TUCKER [id number] 2018- GENERIC Present documented as of this encounter
--- OUTSIDE RECORDS SUMMARY | 2019-01-23 15:44 | XMS REPORT | Summary of Care ---
Author Author [facility] - Health Organization [facility] - Health Address Unknown Phone Unavailable Care Team Providers Care Train Master Name Role Phone Delfina Fang PCP Encounter Details Care Team Description Date Type Department Doctor Unassigned, [place] [address] [place] [address] 11/07/2018 Orders Only [address] [address] Allergies Comments Active Allergy Reactions Severity Noted Date Swelling of throat Codeine Anaphylaxis, 10/22/2018 Itching documented as of this encounter (statuses as of 11/07/2018) Medications End Date Status Medication Sig Dispensed [...] as of this encounter (statuses as of 11/07/2018) Active Problems Not on filedocumented as of this encounter (statuses as of 11/07/2018) Social History Date Tobacco Use Types Packs/Day [...] Treatment Care Team Description Date Type Specialty Liu Combs MD [address] [place] [address] [phone] 11/08/2018 Appointment Radiology Liu Combs MD [address] [place], [place] [id number] 11/08/2018 Appointment Radiology Domingo Lennyjaswindertania Elan, [facility] [address] [place] [phone] 11/19/2018 Office Visit Obstetrics & Gynecology Liu Combs MD [address] [place], [place] [phone] 11/26/2018 Office Visit Obstetrics & Gynecology Marck Oreilly MD [address] [facility] [address] [place], [place] [address] Derick Rubin, PT [address] [place] [address] 12/10/2018 Ancillary Visit Physical Therapy Health Maintenance Due Date Last Done Comments [...] Comments Procedure Name Priority Date/Time Associated Diagnosis EXTERNAL PROVIDER RECORDS Routine 11/07/2018 12:01 AM CDT documented in this encounter Results Not on filedocumented in this encounter Insurance Type Payer Benefit Subscriber ID Effective Phone Address Plan / Dates Group Medicare MEDICARE MEDICARE xxxxxxxxxxx 2016-P [phone] [address] resent [id number] [place] [id number] HMO/PPO/POS CIGNA CIGNA [id number] 2018- GENERIC Present documented as of this encounter
--- OUTSIDE RECORDS SUMMARY | 2019-01-23 15:44 | XMS REPORT | Summary of Care ---
Author Author [facility] [[email or web address] - Health Organization [facility] [[email or web address] - Health Address Unknown Phone Unavailable Care Team Providers Care Project Planner Name Role Phone Delfina Fang PCP Reason for Visit * Radiology Services (Routine) Referred By Contact Referred To Contact Status Reason Specialty Diagnoses / Procedures Liu Combs MD [address] [place] [address] Closed Diagnostic Diagnoses Radiology Breast calcification, right P rocedures BI DIAGNOSTIC TOMOSYNTHESIS BILATERAL BI DIAGNOSTIC MAMMOGRAM BILATERAL Encounter Details Care Team Description Date Type Department Liu Combs MD [address] [place] [address] Arrived 11/28/2018 [facility] Encounter [facility] [address] [place] [address] Allergies Comments Active Allergy Reactions [...] Procedure Name Priority Date/Time Associated Diagnosis BI DIAGNOSTIC Routine 11/28/2018 Breast calcification, TOMOSYNTHESIS BILATERAL 8:35 AM CDT right NOTICE OF BILLING Routine 11/28/2018 [facility] 7:54 AM CDT PATIENTS documented in this encounter Results * BI DIAGNOSTIC TOMOSYNTHESIS BILATERAL (11/28/2018 8:35 AM CDT) Specimen Narrative Performed At PACS [...] with the resident's/fellow's report. Performing Organization Address City/State/Zipcode Phone Number PACS documented in this encounter Visit Diagnoses Diagnosis Breast calcification, right Other (abnormal) findings on radiological examination of breast documented in this encounter Insurance Type Payer Benefit Subscriber ID Effective Phone Address Plan / Dates Group Medicare MEDICARE MEDICARE xxxxxxxxxxx 2016-P [phone] [address] resent [id number] [place] [id number] HMO/PPO/POS CAITLIN TUCKER [id number] 2018- GENERIC Present documented as of this encounter
[2019-01-23] MEDS ORDERED: SODIUM CHLORIDE 0.9% 1000ML 1,000 ML IV STA ×2 (16:18→19:08)
[2019-01-23 16:51] LABS: BASOPHILS % 0.3 % (0.0-1.0); EOSINOPHILS % 0.1 % (0.0-6.0); HEMATOCRIT 38.7 % (34.2-44.1); HEMOGLOBIN 13.3 g/dL (12.0-16.0); LYMPHOCYTES # (AUTO) 0.4 (1.0-3.2); LYMPHOCYTES % 2.8 % (18.0-39.1); MEAN CORPUSCULAR HEMOGLOBIN 31.3 pg (28-32); MEAN CORPUSCULAR HGB CONC 34.4 g/dL (31-35); MEAN CORPUSCULAR VOLUME 91.1 fL (81-99); MONOCYTES # (AUTO) 0.7 (0.2-0.8); MONOCYTES % 4.7 % (4.4-11.3); NEUTROPHILS # (AUTO) 14.2 (2.1-6.9); NEUTROPHILS % 91.6 % (38.7-80.0); PLATELET COUNT 229 x10e3/uL (140-360); RED BLOOD COUNT 4.25 x10e6/uL (3.6-5.1); RED CELL DISTRIBUTION WIDTH 12.3 % (11.7-14.4)
[2019-01-23 16:59] LABS: INR 0.99; PROTHROMBIN TIME 13.6 seconds (11.9-14.5)
[2019-01-23 17:00] LABS: PARTIAL THROMBOPLASTIN TIME 36.1 seconds (23.8-35.5)
[2019-01-23] MEDS ORDERED: VANCOMYCIN 1GM/NS 250 ML 250 ML IV ONE (17:00)
--- NOTE | 2019-01-23 17:07 | Diagnostic Imaging Report ---
EXAMINATION: CHEST SINGLE (PORTABLE) INDICATION: Fever COMPARISON: None FINDINGS: LINES/TUBES:EKG leads overlie the chest. LUNGS:The lungs are well-inflated. No focal consolidation or pulmonary edema. PLEURA:No pleural effusion or pneumothorax. MEDIASTINUM:The cardiomediastinal silhouette appears normal in size and shape. BONES/SOFT TISSUES:No acute osseous injury. Bilateral chest wall calcified densities may represent peripheral calcification of breast implants. ABDOMEN:No free air under the diaphragm. IMPRESSION: No focal pneumonia or pulmonary edema. Signed by: Evangelist Carpenter MD on 01/23/2019 5:04 PM
[2019-01-23 17:11] LABS: ALANINE AMINOTRANSFERASE 16 IU/L (0-55); ALBUMIN 4.1 g/dL (3.5-5.0); ALBUMIN/GLOBULIN RATIO 1.2 (0.8-2.0); ALKALINE PHOSPHATASE 79 IU/L (40-150); ANION GAP 13.7 mmol/L (8-16); BLOOD UREA NITROGEN 13 mg/dL (7-26); BUN/CREATININE RATIO 13 (6-25); CALCIUM 10.2 mg/dL (8.4-10.2); CARBON DIOXIDE 23 mmol/L (22-29); CHLORIDE 102 mmol/L (98-107); CREATINE KINASE 81 IU/L (29-168); CREATININE, SERUM 1.01 mg/dL (0.57-1.11); EST GLOMERULAR FILTRATION RATE 55 ML/MIN (60-); GLUCOSE 117 mg/dL (74-118); MAGNESIUM 1.4 MG/DL (1.3-2.1); POTASSIUM 3.7 mmol/L (3.5-5.1); SODIUM 135 mmol/L (136-145)
[2019-01-23] MEDS: PIPER-TAZ 3.375 GM 50 ML IV SCH ×2 (17:12→23:40)
[2019-01-23] MEDS ORDERED: ACETAMINOPHEN 325 MG TAB PO ONE (17:30)
[2019-01-23] MEDS: DOXYCYCLINE HYCLATE TABLET 100 MG TAB PO SCH (17:45)
[2019-01-23] MEDS ORDERED: LEVALBUTEROL HCL SOLN NEBU 0.63 MG/3 ML NEB INH PRN (18:30)
[2019-01-23] MEDS ORDERED: IPRATROPIUM BROMIDE 0.02% 2.5 ML NEB NEB PRN (18:30)
[2019-01-23 19:04] LABS: BILIRUBIN,URINE NEGATIVE (NEGATIVE); CLARITY,URINE SL CLOUDY (CLEAR); COLOR,URINE YELLOW (YELLOW); KETONES,URINE NEGATIVE (NEGATIVE); LEUKOCYTE ESTERASE ,URINE NEGATIVE (NEGATIVE); NITRITE,URINE NEGATIVE (NEGATIVE); PROTEIN,URINE DIPSTICK NEGATIVE (NEGATIVE); URINE UROBILINOGEN 0.2 mg/dL (0.2 - 1)
[2019-01-23 19:16] LABS: BACTERIA,URINE MODERATE /HPF; EPITHELIAL CELLS,URINE FEW /LPF; WBC,URINE (MAN) 0-5 /HPF (0-5)
[2019-01-23 19:59] VITALS: BP 130/78
[2019-01-23] MEDS ORDERED: HYDROCODONE/APAP 5MG-325MG TAB PO PRN (20:00)
[2019-01-23] MEDS ORDERED: TRAMADOL HCL 50 MG TAB PO PRN (20:00)
--- NOTE | 2019-01-23 20:00 | NUR ---
Received patient from ER. Patient alert and oriented, c/o pain nausea at this time. No s/s of distress noted otherwise. Respirations even and unlabored. All safety measures in place. Family at bedside. Will continue to monitor.
[2019-01-23 20:51] VITALS: BP 130/78
[2019-01-23] MEDS: ONDANSETRON HCL INJ 2MG/ML 2ML 2 MG/ML VIAL IV PRN (20:51)
[2019-01-23] MEDS: HYDROCODONE/APAP 10MG-325MG TAB PO PRN (20:51)
[2019-01-23] MEDS: SODIUM CHLORIDE 0.9% 1000ML 1,000 ML IV SCH (22:26)
[2019-01-23 22:52] VITALS: BP 130/78
--- NOTE | 2019-01-23 22:57 | NUR ---
Called notified Gasper May [employer] regarding SIRS alert. Patient resting in bed, alert and oriented, respirations even and unlabored, no s/s of distress or c/o pain at this time. All safety measures in place. Family at bedside. Will continue to monitor.
[2019-01-24] VITALS (9 sets, daily range): BP systolic 93–124; BP diastolic 51–66
[2019-01-24] MEDS ORDERED: MELATONIN10 MG PO (00:16)
[2019-01-24] MEDS ORDERED: LISINOPRIL2.5 MG PO (00:16)
[2019-01-24] MEDS ORDERED: VITAMIN B COMP1 EAC1 PO (00:16)
[2019-01-24] MEDS ORDERED: ASPIRIN81 MG PO (00:16)
[2019-01-24] MEDS ORDERED: TRAZODONE HCL50 MG PO (00:16)
[2019-01-24] MEDS ORDERED: TRAVATAN Z5 ML OP (00:16)
[2019-01-24] MEDS: ONDANSETRON HCL INJ 2MG/ML 2ML 2 MG/ML VIAL IV PRN ×4 (01:30→20:20)
[2019-01-24] MEDS: ACETAMINOPHEN 325 MG TAB PO PRN ×2 (01:30→16:06)
[2019-01-24] MEDS: HYDROCODONE/APAP 10MG-325MG TAB PO PRN (02:28)
[2019-01-24] MEDS: SODIUM CHLORIDE 0.9% 1000ML 1,000 ML IV SCH ×2 (04:30→13:11)
[2019-01-24] MEDS ORDERED: VANCOMYCIN 1GM/NS 250 ML 250 ML IV ONE (05:00)
[2019-01-24 05:02] LABS: CREATINE KINASE 78 IU/L (29-168)
[2019-01-24] MEDS: FAMOTIDINE 20 MG/2 ML VIAL IV SCH ×2 (05:33→06:30)
[2019-01-24] MEDS: PIPER-TAZ 3.375 GM 50 ML IV SCH ×4 (05:47→17:26)
--- NOTE | 2019-01-24 06:38 | NUR ---
Patient reports oozing and swelling in right arm. Replaced Tegaderm dressing per patient request.
--- NOTE | 2019-01-24 07:00 | NUR ---
BEDSIDE SHIFT REPORT RECEIVED FROM THE PLATEN BUILDER UP RN. EDUCATED PT ABOUT FALL PRECAUTIONS. PT VERBALIZED UNDERSTANDING. BED IS LOW AND LOCKED. PT REFUSED SIDE RAILS AND BED ALARM. PT DENIES NEEDS AT THIS TIME.
[2019-01-24 07:14] LABS: BASOPHILS % 0.2 % (0.0-1.0); EOSINOPHILS % 0.2 % (0.0-6.0); HEMATOCRIT 33.3 % (34.2-44.1); HEMOGLOBIN 11.2 g/dL (12.0-16.0); LYMPHOCYTES # (AUTO) 0.3 (1.0-3.2); LYMPHOCYTES % 2.4 % (18.0-39.1); MEAN CORPUSCULAR HEMOGLOBIN 31.3 pg (28-32); MEAN CORPUSCULAR HGB CONC 33.6 g/dL (31-35); MONOCYTES # (AUTO) 0.6 (0.2-0.8); MONOCYTES % 4.4 % (4.4-11.3); NEUTROPHILS # (AUTO) 12.7 (2.1-6.9); NEUTROPHILS % 91.4 % (38.7-80.0); PLATELET COUNT 184 x10e3/uL (140-360); RED BLOOD COUNT 3.58 x10e6/uL (3.6-5.1); RED CELL DISTRIBUTION WIDTH 12.6 % (11.7-14.4)
[2019-01-24] MEDS ORDERED: HYDRALAZINE HCL 20 MG/ML VIAL IV PRN (07:15)
--- NOTE | 2019-01-24 07:16 | NUR ---
Bedside report given to day nurse. Patient sitting up in bed, alert and oriented, no s/s of distress or c/o pain at this time. All safety measures in place.
[2019-01-24 07:35] LABS: ALBUMIN 2.9 g/dL (3.5-5.0); ANION GAP 12.3 mmol/L (8-16); CALCIUM 8.4 mg/dL (8.4-10.2); CREATININE, SERUM 0.94 mg/dL (0.57-1.11); POTASSIUM 3.3 mmol/L (3.5-5.1)
[2019-01-24] MEDS: FAMOTIDINE 20 MG TAB PO SCH ×2 (08:15→16:05)
[2019-01-24] MEDS: DOXYCYCLINE HYCLATE TABLET 100 MG TAB PO SCH ×2 (08:15→16:05)
[2019-01-24] MEDS: ASPIRIN 81 MG CHEW TAB PO SCH (08:15)
--- NOTE | 2019-01-24 08:30 | NUR ---
PT OFF UNIT FOR PROCEDURE IN SAFE CONDITION.
--- NOTE | 2019-01-24 08:55 | NUR ---
PT BACK TO UNIT AFTER PROCEDURE.
--- NOTE | 2019-01-24 09:35 | NUR ---
RODRICK BRAN NP AND INFORMED PT K LEVEL.
--- NOTE | 2019-01-24 11:05 | Diagnostic Imaging Report ---
EXAMINATION: Head CT HISTORY: Headache, dizziness for the last 2 weeks. COMPARISON: None. TECHNIQUE: Multidetector axial images were obtained without contrast from the foramen magnum to the vertex . The images were reconstructed using brain and bone algorithms. Thin section brain images were reformatted into coronal and sagittal planes. Image quality: Motion/streaking artifact limits the evaluation of the skull base and posterior cranial fossa. Dose modulation, iterative reconstruction, and/or weight based adjustment of the mA/kV was utilized to reduce the radiation dose to as low as reasonably achievable. FINDINGS: Parenchyma: 1. A few scattered white matter hypodensities, most likely age related minimal chronic microvascular ischemic changes. 2. No mass or hemorrhage. No CT evidence of acute territorial vascular insult. Extra-axial spaces:No abnormal density. No extra-axial fluid collections Brain volume: Normal for age. Ventricles: No hydrocephalus or displacement. Arteries: No density suggestive of thrombus. Dural sinuses: No abnormal density. Extra-axial spaces: No abnormal density. Foramen magnum: No mass, Chiari malformation, or basilar invagination. Sella: No obvious mass. Paranasal/mastoid sinuses: Imaged portions unremarkable. Skull/Scalp: No lytic or blastic lesions. No fractures. IMPRESSION: No acute intracranial abnormalities, particularly no mass, hemorrhage or infarcts. Signed by: Dr. Shayy Izaguirre M.D. on 01/24/2019 11:02 AM
[2019-01-24] MEDS ORDERED: HYDROCODONE/APAP 10MG-325MG TAB PO PRN (14:15)
[2019-01-24 14:43] LABS: CREATINE KINASE 87 IU/L (29-168)
--- NOTE | 2019-01-24 17:10 | NUR ---
RODRICK BRAN HARVESTING CONTRACTOR AND INFORMED PT TEMPERATURE AND SWELLING OF THE RIGHT ARM. NEW ORDER RECEIVED FOR RIGHT ARM VENOUS DOPPLER.
--- NOTE | 2019-01-24 17:15 | NUR ---
PAGED DR. VALENZUELA AND INFORMED ABOUT NEW CONSULT.
[2019-01-24] MEDS ORDERED: POTASSIUM CHLORIDE 20 MEQ TAB CR PO ONE (17:45)
--- NOTE | 2019-01-24 17:49 | NUR ---
[id number] cellulitis r arm cat scratch
--- NOTE | 2019-01-24 19:00 | NUR ---
BEDSIDE SHIFT REPORT GIVEN TO THE EXERCISE SCIENCE INSTRUCTOR RN. PT DENIED FURTHER NEEDS.
[2019-01-24] MEDS: TRAVOPROST(OPTH) 2.5 ML BTL OP SCH (20:20)
[2019-01-24] MEDS: VANCOMYCIN 1GM/NS 250 ML 250 ML IV SCH (20:20)
--- NOTE | 2019-01-24 20:20 | NUR ---
PATIENT RESTING IN BED, NO SIGNS OF DISTRESS NOTED. FAMILY MEMBERS AT BEDSIDE AND PATIENT VOICED PAIN IN RIGHT ARM AT A LEVEL OF 5 AND WAS MEDICATED ORDERED. DRESSING IS DRY AND INTACT ON WOUND AND IV FLUIDS ARE RUNNING AT ORDERED RATE. BED IS IN LOWEST POSITION, BOTH SIDE RAILS ARE UP, CALL LIGHT WITHIN EASY REACH, WILL CONTINUE TO MONITOR.
[2019-01-24] MEDS: HYDROCODONE/APAP 5MG-325MG TAB PO PRN (20:25)
[2019-01-24] MEDS: TRAZODONE HCL 50 MG TAB PO SCH (21:00)
[2019-01-25] VITALS (8 sets, daily range): BP systolic 97–134; BP diastolic 55–69
--- NOTE | 2019-01-25 00:09 | Consultation ---
DATE OF CONSULTATION: 01/24/2019 Neurology Consult Note HISTORY OF PRESENT ILLNESS: Ms. 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 A Neurology consultation is requested due to the patient's prior history of chronic inflammatory demyelinating polyradiculoneuropathy. One morning, Ms. Jacobs awoke with numbness of the left hand. The following morning, she woke with numbness affecting the right hand. Over a few weeks, the numbness radiated proximally to the shoulders. Subsequently, the patient developed numbness and burning pain in the feet, which gradually spread proximally to the thighs. In addition to numbness, burning pain, and tingling affecting the hands, arms, feet, and legs, Ms. Jacobs reports weakness of both hands. More specifically, the patient reports she had difficulty lifting items weighing more than 1 to 2 pounds. 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 Several months after the onset of the above described symptoms, Ms. Jacobs was seen by Dr. Shiv Issa, a neurologist. Dr. Issa performed an NCV/EMG of both arms and both legs and diagnosed the patient with chronic inflammatory demyelinating polyradiculoneuropathy. Treatment with IVIG was prescribed. Ms. Jacobs reports that she received approximately 4 months of IVIG treatment. At that time, she was determined to be in remission. After being under the care of Dr. Issa for several months, Ms. Jacobs transferred care to a Dr. Whalen in [place], [place]. At present, she has not seen Dr. Whalen in 14 months. To her knowledge, Ms. Jacobs never experienced an exacerbation of her CIDP. Following her initial treatment with IVIG, she has not received additional treatment with IVIG, intravenous steroids, or plasma exchange. Following treatment with IVIG, the patient's weakness significantly improved. Unfortunately, the numbness and dysesthesias affecting her upper and lower extremities was only moderately improved. Ms. Jacobs reports Dr. Issa prescribed gabapentin for treatment of her dysesthesias. However, the medication caused excessive daytime drowsiness. Ms. Jacobs does not recall receiving treatments for her dysesthesia with other medications. According to the patient, "the pain is not that bad," and she would prefer to take as few medications as possible. REVIEW OF SYSTEMS: Pain and swelling of the right arm, drainage from the right arm, numbness and burning pain, tingling of the hands, arms, feet, and legs. Otherwise, a 12-point review of systems is negative. PAST MEDICAL HISTORY: Hypertension, chronic obstructive pulmonary disease, CIDP diagnosed in 2014 with residual numbness and dysesthesias, glaucoma. PAST SURGICAL HISTORY: Bilateral breast implants, bilateral carpal tunnel release, left knee surgery, TAVR. PAST HOSPITALIZATIONS: Surgeries/procedures as listed, childbirth x1. FAMILY MEDICAL HISTORY: Coronary artery disease. The patient's father is from lung cancer. Her mother is from complications of scleroderma. Ms. Jacobs' mother had a history of colitis as well. Ms. Jacobs has 1 sister, who is alive. Her medical history is unknown. The patient has 1 daughter, who is alive and healthy. SOCIAL HISTORY: Ms. Jacobs is single. She lives with her daughter and her family. The patient is retired/disabled. Ms. Jacobs does smoke approximately 1 pack of cigarettes per day. She is in the process of attempting to quit smoking. The patient does not report current or prior alcohol or recreational drug use. HOME MEDICATIONS: Aspirin 81 mg by mouth daily, lisinopril 2.5 mg by mouth daily, melatonin 10 mg by mouth at bedtime daily, travoprost 2.5 mL in both eyes at bedtime daily, trazodone 50 mg by mouth at bedtime daily, vitamin B complex 1 tablet by mouth daily. HOSPITAL MEDICATIONS: Tylenol, aspirin, doxycycline, Pepcid, hydralazine, [place], Atrovent, Xopenex, Zofran, Zosyn, Travatan, trazodone, and vancomycin. ALLERGIES: CODEINE, MEPERIDINE. NO KNOWN FOOD ALLERGIES. NO KNOWN ALLERGIES TO LATEX. NO KNOWN ALLERGIES TO IODINE OR OTHER CONTRAST MATERIALS. PHYSICAL EXAMINATION: VITAL SIGNS: Height 68 inches, weight 162.5 pounds, BMI 24.7 kg/m2. Blood pressure 100/55 mmHg, pulse 98 beats per minute, respiratory rate 16 breaths per minute, and oxygen saturation 100% on room air. GENERAL: The patient is awake and alert, does not appear distressed. Normal body habitus. HEENT: Normocephalic, atraumatic. Pupils are equal, round, and reactive to light. Moist mucous membranes. Edentulous. NECK: Supple. No appreciable thyromegaly. No appreciable carotid bruits. CARDIOVASCULAR: S1 and S2, regular rate and rhythm. No murmurs, rubs, or gallops. RESPIRATORY: Clear to auscultation bilaterally. No wheezes, rhonchi, or rales. EXTREMITIES: The skin is warm and dry. No clubbing, cyanosis, or edema. The posterior tibial and dorsalis pedis pulses are 2+ and symmetric. SKIN: The right hand and forearm are edematous, erythematous, and warm to the touch. The right forearm is wrapped in gauze. NEUROLOGIC: Memory/Attention: The patient is awake and alert, oriented to person, place, time, and situation. Cranial Nerves: Cranial nerve I-not tested. Cranial nerve II, III, IV, and - pupils are equal and round, react briskly to light (from 4 mm to 2 mm). Extraocular movements intact. No nystagmus. Cranial nerve V-sensation to light touch and pinprick is intact in the bilateral V1 through V3 distributions. Strength in the temporalis and masseter muscles is within normal limits. Cranial nerve VII-the face is symmetric as are all facial movements. Strength is within normal limits. Cranial nerve VIII-hearing is intact to finger rub bilaterally. Cranial nerve IX, X-the soft palate elevates equally and symmetrically. Cranial nerve XI-normal strength of the bilateral sternocleidomastoid and trapezius muscles. Cranial nerve XII-the tongue protrudes midline and moves symmetrically from [id number]. Strength: Bulk is normal. Strength is 5/5 in the bilateral deltoids, triceps, biceps, brachioradialis, wrist flexors and extensors, finger flexors and extensors, intrinsic hand muscles, hip flexors, knee flexors and extensors, ankle dorsiflexion and plantar flexion, and intrinsic foot muscles. Tone is normal. DTRs: Deep tendon reflexes are 1+ and symmetric at the triceps, biceps, brachioradialis, and patellas. Deep tendon reflexes are absent and symmetric at the Achilles. Plantar responses are flexor bilaterally. Sensation: Sensation is decreased to light touch and pinprick in both arms. Sensation is intact to light touch and pinprick in both legs, but with dysesthesias. Cerebellar: [id number] and heel-byrd movements are intact without dysmetria or other impairment. Gait: Deferred. Speech: Spontaneous speech is normal without appreciable dysarthria or aphasia. Repetition is intact. Involuntary Movements: None. Pronator Drift: None. LABORATORY DATA: The most recent comprehensive metabolic panel was significant for potassium of 3.3, carbon dioxide of 20, glucose of 127, total bilirubin of 1.5, total protein of 5.7, albumin of 2.9. Lactic acid 1.1. Cardiac enzymes are negative x3. Total cholesterol 97, triglycerides 51, LDL cholesterol 55, HDL cholesterol 32. The CBC with differential and platelets reveals a white blood cell count of 13.88 with a left shift with 91.4% neutrophils, 2.4% lymphocytes, 4.4% monocytes, 0.2% eosinophils, and 0.2% basophils. The hemoglobin and hematocrit are 11.2 and 33.3, respectively. The platelet count is 184. A coagulation profile revealed a mildly elevated PTT of 36.1. A urinalysis collected on January 23, 2019, revealed slightly cloudy urine with 6 to 10 red blood cells and moderate bacteria with few urine epithelial cells. Influenza types A and B antigen are negative. Blood cultures collected on January 23, 2019, revealed no growth after 24 hours. A urine culture collected on January 23, 2019, reveals no growth. A wound culture collected on January 24, 2019, is pending. DIAGNOSTIC STUDIES: Electrocardiogram on 01/23/2019: Sinus tachycardia at 139 beats per minute. Chest x-ray on 01/23/2019: No focal pneumonia or pulmonary edema. Bilateral carotid artery ultrasound with Doppler on 01/24/2019: Atherosclerosis without hemodynamically significant stenosis at the bilateral carotid bulbs and bilateral carotid bifurcations. Flow is antegrade in the bilateral vertebral arteries. CT of the brain without contrast on 01/24/2019: On my review, there is no evidence of recent or remote large territorial ischemia, hemorrhage, mass, or mass effect. Cerebral volumes are appropriate for age. There are findings suggestive of chronic small vessel ischemic disease. ASSESSMENT AND PLAN: Ms. Jacobs is a 63-year-old right-hand dominant woman with past medical history as detailed, admitted [facility] as an inpatient on January 23, 2019, with cellulitis of the right arm and moderate leukocytosis secondary to a cat scratch. A Neurology consultation was requested due to a prior history of chronic inflammatory demyelinating polyradiculoneuropathy, diagnosed in 2013. On neurological examination, the patient has full strength in both arms and both legs. Deep tendon reflexes are diminished throughout except at the ankles where they are absent. Sensation is diminished to light touch and pinprick over both arms. Sensation to light touch and pinprick is intact over both legs, but with dysesthesias. According to Ms. Jacobs, the sensory findings are probably chronic. The patient's laboratory data and other diagnostic studies have been reviewed and are documented above. As previously stated, Ms. Jacobs has a prior history of chronic inflammatory demyelinating polyradiculoneuropathy, diagnosed in 2013-currently in remission- with residual numbness and mild dysesthesias. According to Ms. Jacobs, the mild dysesthesias are tolerable. The patient prefers to take as few medications as possible. Therefore, no further evaluation or treatment is recommended from Neurology. Please call again with any questions or concerns. TIME SPENT: 70 minutes. America Lange MD CP/GIUSEPPE /[id number] MTDD
--- NOTE | 2019-01-25 00:39 | Consultation ---
DATE OF CONSULTATION: REASON FOR CONSULTATION: Cellulitis of the right upper extremity. HISTORY OF PRESENT ILLNESS: This patient, who is a very pleasant 63-year-old white female, who has history of hypertension, COPD, autoimmune disease, CIPD, osteoarthritis, status post total knee replacement, who was scratched by her cat a couple of days ago, comes in with right arm being red and swollen. The patient denies any drainage. She felt feverish. The patient came to the emergency room, where she was evaluated and admitted. The patient is currently lying in bed comfortably. PAST MEDICAL HISTORY: As above. PAST SURGICAL HISTORY: As above. ALLERGIES: CODEINE. SOCIAL HISTORY: No drug abuse or alcohol abuse. She smokes cigarettes every day lightly. REVIEW OF SYSTEMS: HEENT: There is no headache, visual changes, hearing changes. GI: There is no nausea, no vomiting, no diarrhea. CARDIAC: There is no arrhythmia. NEURO: No seizure activity or new problems. The patient has been running fever since she came here. Also, the patient does work in the postal office. PHYSICAL EXAMINATION: GENERAL: Currently alert, oriented, does not seem in acute distress. VITAL SIGNS: Stable, afebrile earlier, now is 101.6. HEENT: Normocephalic, not icteric. NECK: Supple. No JVD. No lymphadenopathy. No thyromegaly. CHEST: Clear bilateral. HEART: S1, S2. No S3, S4, or murmur. ABDOMEN: Soft. Bowel sounds present. No tenderness. No hepatosplenomegaly. EXTREMITIES: No edema. Right upper extremity, there is erythema, there is edema and induration. There is no fluctuation at the present time. LABORATORY DATA: White count on admission was 15.47, today 13.88, hemoglobin 11. Sodium 126, potassium 3.3, creatinine of 0.94, protein of 7.4, albumin of 2.9. Liver enzyme within normal limit. The patient had a chest x-ray when she first came, showed no acute infiltrate. MEDICATION LIST: She is currently on: 1. Piperacillin. 2. Tazobactam. 3. Tylenol. 4. Doxycycline. 5. Zofran. IMPRESSION: 1. Cellulitis of the hand after cat scratch pathogen, but could be Bartonella, but gram-positive, gram negative also possibility. I agree with current choice of antibiotic for the time being. Await cultures. We will continue to follow her clinically. If there is no improvement in the swelling, may have to do ultrasound of soft tissue or an MRI depending. 2. History of smoking. 3. History of coronary artery disease. 4. History of CIPD. We will follow closely. Thank you for asking me to see this patient. MD TIFFANIE Saldaña/GIUSEPPE /[id number]
[2019-01-25] MEDS: PIPER-TAZ 3.375 GM 50 ML IV SCH ×2 (00:40→05:45)
[2019-01-25] MEDS: ACETAMINOPHEN 325 MG TAB PO PRN (04:20)
[2019-01-25] MEDS: SODIUM CHLORIDE 0.9% 1000ML 1,000 ML IV SCH ×3 (04:40→20:30)
[2019-01-25 05:46] LABS: BASOPHILS % 0.3 % (0.0-1.0); EOSINOPHILS # (AUTO) 0.1 (0.0-0.4); EOSINOPHILS % 1.3 % (0.0-6.0); HEMATOCRIT 31.3 % (34.2-44.1); HEMOGLOBIN 10.2 g/dL (12.0-16.0); LYMPHOCYTES # (AUTO) 0.5 (1.0-3.2); MEAN CORPUSCULAR HEMOGLOBIN 31.2 pg (28-32); MEAN CORPUSCULAR HGB CONC 32.6 g/dL (31-35); MEAN CORPUSCULAR VOLUME 95.7 fL (81-99); MONOCYTES # (AUTO) 0.5 (0.2-0.8); NEUTROPHILS # (AUTO) 7.9 (2.1-6.9); NEUTROPHILS % 87.3 % (38.7-80.0); PLATELET COUNT 136 x10e3/uL (140-360); RED BLOOD COUNT 3.27 x10e6/uL (3.6-5.1); RED CELL DISTRIBUTION WIDTH 12.7 % (11.7-14.4)
[2019-01-25] MEDS ORDERED: MECLIZINE HCL 12.5 MG TAB PO PRN (06:00)
[2019-01-25 06:07] LABS: ANION GAP 10.6 mmol/L (8-16); BLOOD UREA NITROGEN 12 mg/dL (7-26); BUN/CREATININE RATIO 15 (6-25); CALCIUM 8.6 mg/dL (8.4-10.2); CARBON DIOXIDE 21 mmol/L (22-29); CHLORIDE 107 mmol/L (98-107); EST GLOMERULAR FILTRATION RATE > 60 ML/MIN (60-); GLUCOSE 99 mg/dL (74-118); MAGNESIUM 1.6 MG/DL (1.3-2.1); POTASSIUM 3.6 mmol/L (3.5-5.1); SODIUM 135 mmol/L (136-145)
[2019-01-25 06:32] LABS: ALBUMIN 2.6 g/dL (3.5-5.0); BILIRUBIN,DIRECT 0.5 mg/dL (0.0-0.5)
--- NOTE | 2019-01-25 07:00 | NUR ---
BEDSIDE SHIFT REPORT RECEIVED FROM THE FERN PICKER RN. EDUCATED PT ABOUT FALL PRECAUTIONS. CALL LIGHT WITH IN EASY REACH. INSTRUCTED PT TO USE CALL LIGHT FOR ALL THE NEEDS. PT VERBALIZED UNDERSTANDING. BED IS LOW AND LOCKED. SIDE RAILS X2. PT DENIES NEEDS AT THIS TIME.
[2019-01-25 07:49] LABS: BAND NEUTROPHILS % (MANUAL) 3 %; LYMPHOCYTES % (MANUAL) 5 % (19-48); MONOCYTES % (MANUAL) 3 % (3.4-9.0); NEUTROPHILS % (MANUAL) 88 % (40-74)
[2019-01-25 07:51] LABS: PLATELET ESTIMATE SLIGHTLY DECREASED
[2019-01-25 07:52] LABS: BURR CELLS SLIGHT; OVALOCYTES FEW
[2019-01-25 07:53] LABS: PLATELET MORPHOLOGY COMMENT NORMAL; POIKILOCYTOSIS SLIGHT; RBC MORPHOLOGY COMMENT ABNORMAL
--- NOTE | 2019-01-25 08:00 | NUR ---
LAC IV REMOVED. TIP INTACT. DRESSING APPLIED. NEW IV STARTED 20 G LFA. PT DENIED FURTHER NEEDS.
[2019-01-25] MEDS: METOCLOPRAMIDE HCL 10 MG/2ML VIAL IV SCH ×4 (08:30→21:30)
[2019-01-25] MEDS: FAMOTIDINE 20 MG TAB PO SCH ×2 (08:30→19:08)
[2019-01-25] MEDS: ASPIRIN 81 MG CHEW TAB PO SCH (08:37)
[2019-01-25] MEDS: DOXYCYCLINE HYCLATE TABLET 100 MG TAB PO SCH (08:38)
[2019-01-25] MEDS: MEGESTROL ACETATE 40 MG TAB PO SCH ×2 (08:38→19:08)
[2019-01-25] MEDS: VANCOMYCIN 1GM/NS 250 ML 250 ML IV SCH ×2 (08:50→21:30)
[2019-01-25] MEDS: LEVOFLOXACIN 500MG/D5W 100ML 100 ML IV SCH (10:22)
[2019-01-25] MEDS: BACITRACIN ZINC 15 GM OINT TOP SCH (12:53)
--- NOTE | 2019-01-25 13:58 | NUR ---
WOUND CARE CONSULT 63 YO FEMALE HX OF CELLULITIS RIGHT LOWER ARM R/T CAT SCRATCH PATIENT PRESENTS WITH DARK PURPLISH AREA 17CMX 7CM TWO SMALL DRAINING AREAS WITH SEROSANGUINEOUS DRANIAGE NOTED IN MODERATE AMOUNT PATIENT ON ANTIBIOTICS AND HAS CULTURE RESULTS PENDING RECOMMENDATION: NURSING TO APPLY BACITRACIN OINTMENT DAILY TO LOWER RIGHT ARM COVER WITH ALLEVYN FOAM DRESSING Addendum: 01/25/19 at 1404 by Kiran Kiser RN Amended: Links added.
[2019-01-25] MEDS: HYDROCODONE/APAP 5MG-325MG TAB PO PRN (14:25)
--- NOTE | 2019-01-25 18:44 | Consultation ---
DATE OF CONSULTATION: Cardiology Consultation HISTORY OF PRESENT ILLNESS: This is a 63-year-old woman, who follows my colleague, Dr. Amaya, who has a history of bioprosthetic aortic valve replacement, coronary artery disease, hypertension, and hyperlipidemia, who presented as an outpatient for stress test. However, she was noted to have significant erythema over her upper extremity. The patient states that she had recent scratch by her cat with progressive edema, discoloration, and pain. REVIEW OF SYSTEMS: A 12-point review of system was conducted, is negative except as stated above in the HPI. PAST SURGICAL HISTORY: Aortic valve replacement. PAST FAMILY HISTORY: Noncontributory. PAST MEDICAL HISTORY: As stated above in the HPI. SOCIAL HISTORY: No illicit drug, alcohol, or tobacco use. ALLERGIES: CODEINE, MEPERIDINE. MEDICATIONS: See medication reconciliation form. PHYSICAL EXAMINATION: VITAL SIGNS: Temperature is 97.5, heart rate is 90, respirations are 18, blood pressure is 111/62, and oxygen saturation 96% on room air. GENERAL: Well appearing, in no apparent distress. Alert orient x3. CARDIOVASCULAR: Regular rate and rhythm. Systolic murmur at the right sternal border. LUNGS: Clear to auscultation. ABDOMEN: Soft, nontender, and nondistended. EXTREMITIES: Right upper extremity is wrapped and dressed. NEUROLOGIC: No focal deficits noted. CARDIOVASCULAR MEDICATIONS: Reviewed. LABORATORY DATA: Reviewed. IMPRESSION: 1. History of aortic valve replacement. 2. Coronary artery disease. 3. Hypertension. 4. Hyperlipidemia. 5. Tobacco use. 6. Cellulitis. RECOMMENDATIONS: The patient is stable from a cardiovascular standpoint. Her outpatient tests are pending and she is asymptomatic from a cardiovascular standpoint. Continue cellulitis treatment per primary team. Leon Thibodeaux DO BM/MODL /[id number]
--- NOTE | 2019-01-25 19:00 | NUR ---
BEDSIDE SHIFT REPORT GIVEN TO THE PINKING MACHINE OPERATOR RN. PT DENIED FURTHER NEEDS.
[2019-01-25] MEDS: MUPIROCIN 2% OINT 22 GM TUBE TOP SCH (19:08)
[2019-01-25] MEDS: TRAVOPROST(OPTH) 2.5 ML BTL OP SCH (21:30)
[2019-01-25] MEDS: TRAZODONE HCL 50 MG TAB PO SCH (21:30)
--- NOTE | 2019-01-25 21:30 | NUR ---
PATIENT RESTING IN BED, NO SIGNS OF DISTRESS NOTED. FAMILY MEMBERS AT BEDSIDE AND PATIENT VOICED PAIN IN RIGHT ARM AT A LEVEL OF 7 AND WAS MEDICATED ORDERED. DRESSING ON WOUND MINIMAL DRAINAGE NOTED AND IV FLUIDS ARE RUNNING AT ORDERED RATE. BED IS IN LOWEST POSITION, BOTH SIDE RAILS ARE UP, CALL LIGHT WITHIN EASY REACH, WILL CONTINUE TO MONITOR.
[2019-01-26] VITALS (9 sets, daily range): BP systolic 112–127; BP diastolic 57–65
--- NOTE | 2019-01-26 03:20 | NUR ---
PATIENT REFUSED 0300 LAB DRAWS, WILL CONSULT WITH PHLEBOTOMY TO REATTEMPT AT 0500.
[2019-01-26] MEDS: SODIUM CHLORIDE 0.9% 1000ML 1,000 ML IV SCH (03:41)
[2019-01-26 06:13] LABS: BASOPHILS % 0.3 % (0.0-1.0); EOSINOPHILS # (AUTO) 0.1 (0.0-0.4); HEMATOCRIT 29.4 % (34.2-44.1); HEMOGLOBIN 9.8 g/dL (12.0-16.0); LYMPHOCYTES # (AUTO) 0.7 (1.0-3.2); LYMPHOCYTES % 10.8 % (18.0-39.1); MEAN CORPUSCULAR HEMOGLOBIN 30.9 pg (28-32); MEAN CORPUSCULAR HGB CONC 33.3 g/dL (31-35); MEAN CORPUSCULAR VOLUME 92.7 fL (81-99); MONOCYTES # (AUTO) 0.4 (0.2-0.8); NEUTROPHILS # (AUTO) 5.6 (2.1-6.9); NEUTROPHILS % 81.3 % (38.7-80.0); PLATELET COUNT 150 x10e3/uL (140-360); RED BLOOD COUNT 3.17 x10e6/uL (3.6-5.1); RED CELL DISTRIBUTION WIDTH 12.5 % (11.7-14.4)
[2019-01-26 06:24] LABS: ANION GAP 12.2 mmol/L (8-16); BLOOD UREA NITROGEN 7 mg/dL (7-26); BUN/CREATININE RATIO 10 (6-25); CALCIUM 8.5 mg/dL (8.4-10.2); CARBON DIOXIDE 22 mmol/L (22-29); CHLORIDE 109 mmol/L (98-107); CREATININE, SERUM 0.67 mg/dL (0.57-1.11); EST GLOMERULAR FILTRATION RATE > 60 ML/MIN (60-); GLUCOSE 80 mg/dL (74-118); POTASSIUM 3.2 mmol/L (3.5-5.1); SODIUM 140 mmol/L (136-145)
--- NOTE | 2019-01-26 06:54 | NUR ---
RECEIVED BEDSIDE SHIFT REPORT FROM OFF GOING NURSE. PATIENT IS RESTING IN BED. NO S/S OF DISTRESS NOTED. FAMILY AT BEDSIDE. CALL LIGHT WITHIN REACH. BED IN THE LOWEST POSITION.
[2019-01-26] MEDS ORDERED: POTASSIUM CHLORIDE 20 MEQ TAB CR PO STA (07:44)
[2019-01-26] MEDS: MEGESTROL ACETATE 40 MG TAB PO SCH ×2 (08:17→16:56)
[2019-01-26] MEDS: ASPIRIN 81 MG CHEW TAB PO SCH (08:17)
[2019-01-26] MEDS: FAMOTIDINE 20 MG TAB PO SCH ×2 (08:17→16:56)
[2019-01-26] MEDS: METOCLOPRAMIDE HCL 10 MG/2ML VIAL IV SCH ×4 (08:17→21:10)
[2019-01-26] MEDS: ACETAMINOPHEN 325 MG TAB PO PRN (08:21)
[2019-01-26 08:28] LABS: EOSINOPHILS % (MANUAL) 1 % (0-7); LYMPHOCYTES % (MANUAL) 17 % (19-48); MONOCYTES % (MANUAL) 4 % (3.4-9.0); NEUTROPHILS % (MANUAL) 77 % (40-74); PLATELET ESTIMATE ADEQUATE; PLATELET MORPHOLOGY COMMENT NORMAL; RBC MORPHOLOGY COMMENT NORMAL
[2019-01-26] MEDS: VANCOMYCIN 1GM/NS 250 ML 250 ML IV SCH ×2 (09:05→19:19)
[2019-01-26] MEDS: BACITRACIN ZINC 15 GM OINT TOP SCH (09:30)
[2019-01-26] MEDS: MUPIROCIN 2% OINT 22 GM TUBE TOP SCH ×2 (09:30→16:56)
[2019-01-26] MEDS ORDERED: POTASSIUM CHLORIDE 20 MEQ TAB CR PO NR (10:30)
[2019-01-26] MEDS: LEVOFLOXACIN 500MG/D5W 100ML 100 ML IV SCH (10:40)
--- NOTE | 2019-01-26 12:07 | Progress Note ---
DATE: Cardiology Progress Note SUBJECTIVE: The patient is without any new complaints. She does endorse continued swelling of her right forearm. However, the redness is getting better. Denies any chest pain or palpitations, shortness of breath. CARDIOVASCULAR MEDICATIONS: Aspirin 81 mg p.o. daily. LABORATORY DATA: WBC 6.86, hemoglobin 9.8, hematocrit 29.4, platelets 150. Sodium 140, potassium 3.2, BUN 7, creatinine 0.67. OBJECTIVE: VITAL SIGNS: Temperature 96.2, pulse 63, respiratory rate 18, blood pressure 123/61, oxygen saturation 96% on room air. GENERAL: Alert and oriented x3, resting comfortably in bed, does not appear to be in any acute distress. CARDIOVASCULAR: Regular rate and rhythm. Systolic murmur present 2/6. LUNGS: Clear to auscultation throughout. No wheezing. No rhonchi or crackles. ABDOMEN: Soft, nontender. EXTREMITIES: Lower extremities, no edema. Right upper extremity some edema noted and reddened bruised area. IMPRESSION: 1. History of aortic valve replacement. 2. Coronary artery disease. 3. Hypertension. 4. Hyperlipidemia. 5. Tobacco use. 6. Cellulitis. RECOMMENDATIONS: Continue aspirin therapy. Continue the above listed cardiac medication. Antimicrobial therapy per Infectious Disease. Recent stress test in the office. No other cardiovascular workup is indicated at this time. We will continue to follow. Dictated by Cary Garcia NP MD TATI Taveras/GIUSEPPE /[id number]
--- NOTE | 2019-01-26 19:05 | NUR ---
Bedside shift report given to oncoming nurse. Patient is resting in couch. No acute distress noted. Call light within reach. Bed in the lowest position.
[2019-01-26] MEDS: TRAZODONE HCL 50 MG TAB PO SCH ×2 (21:00→21:10)
[2019-01-26] MEDS: TRAVOPROST(OPTH) 2.5 ML BTL OP SCH (21:10)
[2019-01-27] VITALS: BP 93/50
[2019-01-27 00:23] LABS: BASOPHILS % 0.2 % (0.0-1.0); EOSINOPHILS # (AUTO) 0.1 (0.0-0.4); EOSINOPHILS % 2.2 % (0.0-6.0); HEMOGLOBIN 9.5 g/dL (12.0-16.0); LYMPHOCYTES % 16.1 % (18.0-39.1); MEAN CORPUSCULAR HEMOGLOBIN 30.7 pg (28-32); MEAN CORPUSCULAR HGB CONC 33.9 g/dL (31-35); MEAN CORPUSCULAR VOLUME 90.6 fL (81-99); MONOCYTES # (AUTO) 0.5 (0.2-0.8); MONOCYTES % 8.7 % (4.4-11.3); NEUTROPHILS # (AUTO) 4.5 (2.1-6.9); NEUTROPHILS % 72.3 % (38.7-80.0); PLATELET COUNT 167 x10e3/uL (140-360); RED BLOOD COUNT 3.09 x10e6/uL (3.6-5.1); RED CELL DISTRIBUTION WIDTH 12.5 % (11.7-14.4)
[2019-01-27 00:34] LABS: BLOOD UREA NITROGEN 9 mg/dL (7-26); BUN/CREATININE RATIO 13 (6-25); CALCIUM 8.3 mg/dL (8.4-10.2); CARBON DIOXIDE 20 mmol/L (22-29); CHLORIDE 109 mmol/L (98-107); CREATININE, SERUM 0.72 mg/dL (0.57-1.11); EST GLOMERULAR FILTRATION RATE > 60 ML/MIN (60-); GLUCOSE 180 mg/dL (74-118); SODIUM 138 mmol/L (136-145)
[2019-01-27 04:00] VITALS: BP 124/92
--- NOTE | 2019-01-27 07:03 | NUR ---
Received patient lying in bed with eyes open.Dressing and abx ointment applied to right forearm. Respiration even and unlabored without SOB. Denies pain. Call light in reach.
[2019-01-27] MEDS: METOCLOPRAMIDE HCL 10 MG/2ML VIAL IV SCH (07:30)
[2019-01-27 07:39] VITALS: BP 112/68
[2019-01-27] MEDS: FAMOTIDINE 20 MG TAB PO SCH (08:43)
[2019-01-27] MEDS: LEVOFLOXACIN 500MG/D5W 100ML 100 ML IV SCH (08:44)
[2019-01-27] MEDS: MUPIROCIN 2% OINT 22 GM TUBE TOP SCH (08:44)
[2019-01-27] MEDS: ASPIRIN 81 MG CHEW TAB PO SCH (08:44)
[2019-01-27] MEDS: MEGESTROL ACETATE 40 MG TAB PO SCH (08:44)
[2019-01-27] MEDS: BACITRACIN ZINC 15 GM OINT TOP SCH (08:44)
[2019-01-27] MEDS: ACETAMINOPHEN 325 MG TAB PO PRN (08:52)
[2019-01-27] MEDS ORDERED: POTASSIUM CHLORIDE 20 MEQ TAB CR PO SCH (09:00)
[2019-01-27] MEDS: VANCOMYCIN 1GM/NS 250 ML 250 ML IV SCH (09:45)
[2019-01-27 10:10] VITALS: BP 112/68
[2019-01-27] MEDS ORDERED: CIPRO500 MG PO (11:11)
[2019-01-27] MEDS ORDERED: DOXYCYCLINE HY100 MG PO (11:13)
--- NOTE | 2019-01-27 11:30 | NUR ---
Spoke with Mellissa Coleman and notified about antibiotic prescription from infectious disease consult. States patient is okay to discharge today.
[2019-01-27 11:36] VITALS: BP 126/60
--- NOTE | 2019-01-27 11:37 | Progress Note ---
DATE: Cardiology Progress Note SUBJECTIVE: The patient is without any cardiac complaints. She states that she denies any chest pain or shortness of breath. Does report right forearm and upper extremity continued swelling. Denies any pain. OBJECTIVE: VITAL SIGNS: Temperature 97.7, pulse 80, respiratory rate 18, blood pressure 112/68, and oxygen saturation 96% on room air. GENERAL: Alert and oriented x3, resting comfortably on the side of the bed, does not appear to be in any acute distress. NECK: Supple. No JVD noted. CARDIOVASCULAR: Regular rate and rhythm, 1/6 systolic murmur present. LUNGS: Diminished breath sounds in posterior lower lobes, otherwise clear to auscultation. No wheezing. No rhonchi or crackles. ABDOMEN: Soft and nontender. EXTREMITIES: Right upper extremity with 2+ nonpitting edema, reddened raised area covered with dressing. CARDIOVASCULAR MEDICATIONS: Aspirin 81 mg p.o. daily. LABORATORY DATA: WBC 6.23, hemoglobin 9.5, hematocrit 28.0, and platelets 167. Sodium 138, potassium 3.0, BUN 9, creatinine 0.70, and calcium 8.3. IMPRESSION: 1. History of aortic valve replacement. 2. Coronary artery disease. 3. Hypertension. 4. Hyperlipidemia. 5. Tobacco use. 6. Cellulitis. RECOMMENDATIONS: Venous Doppler obtained of the right upper extremity, negative for DVT. Continue with arm elevation. Continue antimicrobial therapy per Infectious Disease. Recent cardiac workup in the office, nothing indicated at this time. We will continue to follow and monitor this patient. Dictated by Cary Garcia NP MD JOSÉ MANUEL [facility]/GIUSEPPE /[id number]
--- NOTE | 2019-01-27 12:23 | NUR ---
PIV to left forearm discontinued, catheter tip intact, no bleeding noted.
--- NOTE | 2019-01-27 12:48 | NUR ---
Transported patient via wheelchair to private vehicle. Patient is discharge to home as ordered. Personal belongings are carried by patient. Prescription given.
--- NOTE | 2019-01-28 05:27 | Discharge Summary ---
ADMISSION DIAGNOSES: Right forearm cellulitis and severe sepsis, present on admission; hypertension; glaucoma; chronic inflammatory demyelinating polyradiculoneuropathy; dizziness, history of transcatheter aortic valve replacement. DISCHARGE DIAGNOSES: Right forearm cellulitis and severe sepsis, present on admission; hypertension; glaucoma; chronic inflammatory demyelinating polyradiculoneuropathy; dizziness, history of transcatheter aortic valve replacement; rule out deep venous thrombosis; rule out cerebrovascular accident. HISTORY: Hypertension, glaucoma, insomnia, and CIDP. SURGICAL HISTORY: Bilateral breast implants, TAVR in 2016, left knee surgery, x1, and bilateral carpal tunnel release. FAMILY HISTORY: The patient's father had cancer. The patient's grandfather had a stroke. SOCIAL HISTORY: The patient admits to smoking 1 pack of cigarettes per day. HOSPITAL COURSE: A 63-year-old female admitted with complaints of right forearm swelling and drainage after her cat scratched her on Monday. She picked her cat and the cat clogged scratching her skin. The swelling started on Monday. Initially, she did not have a fever or drainage. On the day prior to admission, the wound continued to worsen and swell, so she came to the ER. The drainage started after admission to the hospital. She was sent to the ER by her ride operator. On admission, the patient was started on vancomycin, Zosyn, and doxycycline. Wound culture was ordered and Infectious Disease was consulted. Per the patient and family request, Neurology was consulted to help the patient deal with CIDP symptoms. Right upper extremity venous Doppler was negative for DVT and due to complaints of dizziness, the carotid Doppler was done, which was negative. After Neurology spoke with the patient, the family and patient then said they do not want any additional medications, so Neurology signed out of the case. Per ID recommendation, since the WBC has been normal for couple of days, the patient can be discharged home with doxycycline and Cipro x14 days. She was instructed to follow up with primary care in 1 to [address] Freire in 1 to 2 weeks. The patient and family understand discharge instructions and agreed to plan. Vital signs stable, the patient afebrile. Dictated by Mellissa Coleman, SUMIT Angel Lazar MD [facility]/MODL /[id number]
== END 2019-01-27 13:05 | disposition home or self-care (01) | DRG 872 ==
LOC: ER 15:41 → ERHOLD 18:27 → MED/SURG3 19:59
PROVIDERS: ADMIT Internal Medicine; ATTEND Internal Medicine
DX: A41.9 Sepsis, unspecified organism (principal); L03.113 Cellulitis of right upper limb; G61.81 Chronic inflammatory demyelinating polyneuritis; R65.20 Severe sepsis without septic shock; S50.811A Abrasion of right forearm, initial encounter; W55.03XA Scratched by cat, initial encounter; I10 Essential (primary) hypertension; H40.9 Unspecified glaucoma; R42 Dizziness and giddiness; Z95.2 Presence of prosthetic heart valve; Z82.49 Family history of ischemic heart disease and other diseases of the circulatory system; Z80.1 Family history of malignant neoplasm of trachea, bronchus and lung; Z84.89 Family history of other specified conditions; Z79.82 Long term (current) use of aspirin; Z88.5 Allergy status to narcotic agent; Z88.8 Allergy status to other drugs, medicaments and biological substances; R20.8 Other disturbances of skin sensation; I25.10 Atherosclerotic heart disease of native coronary artery without angina pectoris; E78.5 Hyperlipidemia, unspecified; F17.210 Nicotine dependence, cigarettes, uncomplicated
CPT/HCPCS: 36415; 70450; 71045; 80048; 80053; 80061; 80076; 80202; 81001; 82550; 82553; 83605; 83735; 84484; 85025; 85610; 85730; 87040; 87071; 87086; 87205; 87400; 93005; 93880; 93971; 99284; J1956; J2405; J2543; J2765; J3370; J7030